=== PATIENT | female | born 1940 | race Caucasian/White ===

== ENCOUNTER 2019-01-22 11:02 | Day surgery (SDC) | payer MEDICARE ==
[~2019-01-22 11:02] MED LIST: Midazolam 1 MG/ML 2 ML SDV ONE; Propofol 200 MG/20 ML SDV ONE; Sodium Chloride 0.9% 10 ML Syringe FLUSH PRN
[2019-01-22] MEDS: Lactated Ringers 1,000 ML IV SCH (11:59)
[2019-01-22] MEDS ORDERED: Midazolam 1 MG/ML 2 ML SDV ONE (12:27)
[2019-01-22] MEDS ORDERED: Propofol 200 MG/20 ML SDV ONE (12:27)
--- NOTE | 2019-01-22 13:01 | PCM.OPNOTE ---
- General Post-Op/Procedure Note Date of Surgery/Procedure: 01/22/19 Operative Procedure(s): Incomplete Cplonoscopy Findings: Sig tics, tortuous Pre Op Diagnosis: Hx Polyps Post-Op Diagnosis: Same Anesthesia Technique: MAC Primary Surgeon: Gabriele Li Anesthesia Provider: Analy Hummel Complications: None Condition: Good
--- NOTE | 2019-01-22 13:02 | PCM.HPR ---
H & P Addendum review - H & P Addendum Review Date of Original H & P: 12/31/18 Date Reviewed: 01/22/19 Time Reviewed: 12:15 Patient was Examined: No Changes
[2019-01-22 17:05] VITALS: BP 148/99; PULSE 75
--- NOTE | 2019-01-23 10:42 | OR ---
Date of Procedure: 01/22/2019 PREOPERATIVE DIAGNOSIS: History of colon polyps. POSTOPERATIVE DIAGNOSIS: Sigmoid diverticulosis. PROCEDURE: Incomplete colonoscopy to the sigmoid colon. ANESTHESIA: IV sedation. PROCEDURE IN DETAIL: The patient was brought to the procedure room where she was placed on her left side and IV sedation administered. Digital rectal exam was performed which was normal. Colonoscope was inserted and advanced into a very tortuous sigmoid colon with multiple diverticula present. Despite changing to the supine position and providing pressure on the abdomen, I was unable to get past 30 cm. Procedure was discontinued at that time. Air was removed and the scope withdrawn. The patient tolerated the procedure well and returned to recovery in stable condition. No further colon screening should be necessary due to the patient's age. MODLucille CHAMBERLAIN MD /[id number]
== END 2019-01-22 14:05 | disposition home or self-care (01) ==
LOC: LL.SDS 11:02
PROVIDERS: ATTEND Surgery
DX: K57.30 Diverticulosis of large intestine without perforation or abscess without bleeding (principal); K63.89 Other specified diseases of intestine; R19.4 Change in bowel habit; I10 Essential (primary) hypertension; E03.9 Hypothyroidism, unspecified; Z88.1 Allergy status to other antibiotic agents; Z88.8 Allergy status to other drugs, medicaments and biological substances; Z86.010 Personal history of colon polyps; Z79.899 Other long term (current) drug therapy
CPT/HCPCS: J2250; J2704; J7120

== ENCOUNTER 2019-03-16 01:10 | Emergency (ER) | payer MEDICARE ==
[2019-03-16 02:13] LABS: CHLORIDE,CL 105 mmol/L (98-107); SODIUM,NA 143 mmol/L (136-145)
[2019-03-16] MEDS ORDERED: Aspirin 81 MG Tab.Chew ONE (02:23)
[2019-03-16] MEDS ORDERED: Heparin Sodium 5,000 Units/ML Vial IVPUSH ONE (02:54)
[2019-03-16] MEDS ORDERED: Metoprolol Tartrate 50 MG Tab PO ONE (02:55)
[2019-03-16] MEDS ORDERED: Heparin Sodium/D5W 25,000 UNITS/500 ML BAG IV SCH (03:00)
--- NOTE | 2019-03-16 03:37 | EDM.PDOC ---
ED HPI GENERAL MEDICAL PROBLEM - General Chief Complaint: Cardiovascular Problem Stated Complaint: chest achiness Time Seen by Provider: 03/16/19 01:27 Source of Information: Reports: Patient History Limitations: Reports: No Limitations - History of Present Illness INITIAL COMMENTS - FREE TEXT/NARRATIVE: Patient comes to ER with complaint of intermittent chest tightness/ache that was first noticed the day after Thanksgiving. Episodes are usually at night/ late evening and last around 30-60sec. She had one episode nightly for three nights in a row. Mild nausea with first one, but none with the other two. No diaphoresis/SOB and no radiation of pain. She had dry heaves tonight at 10pm, then went to bed. No other symptoms at the time. She woke up around midnight with another round of dry heaves and then noticed the chest tightness had returned, and this time it radiated into her left arm. Again, no diaphoresis or obvious SOB. No other recent health changes. No med changes. No history of CAD/LA. Reports hx of hypothyroidism and HTN. Prediabetes. Nonsmoker. Snores at night. Has not undergone testing to r/o sleep apnea - Related Data Allergies Allergy/AdvReac Type Severity Reaction Status Date / Time cefuroxime [From Ceftin] Allergy UNKNOWN Verified 03/16/19 03:31 Home Meds: Home Meds Levothyroxine [Synthroid] 100 mcg PO DAILY 02/16/16 [History] Losartan/Hydrochlorothiazide [Losartan-HCTZ 100-25 MG] 1 tab PO DAILY 02/16/16 [ History] amLODIPine [Norvasc] 10 mg PO DAILY 02/16/16 [History] Cholecalciferol (Vitamin D3) [Vitamin D3] 1,000 units PO DAILY 01/22/19 [History ] Lutein/Minerals/Vit A,C & E [Ocuvite] 1 tab PO DAILY 01/22/19 [History] Ubidecarenone [Co Q-10] 100 mg PO DAILY 01/22/19 [History] Past Medical History Cardiovascular History: Reports: Hypertension Respiratory History: Reports: None Gastrointestinal History: Reports: None Genitourinary History: Reports: None CREATIVE RECRUITER History: Reports: Other (See Below) Other CREATIVE RECRUITER History: 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 Musculoskeletal History: Reports: Other (See Below) Other Musculoskeletal History: Rotator cuff injury Neurological History: Reports: None Psychiatric History: Reports: Anxiety, Depression Endocrine/Metabolic History: Reports: Hypothyroidism Hematologic History: Reports: None Immunologic History: Reports: None Oncologic (Cancer) History: Reports: None Other Oncologic History: precancerous cell within ovaries Dermatologic History: Reports: Other (See Below) Other Dermatologic History: herpes zoster - Past Surgical History HEENT Surgical History: Reports: Cataract Surgery Social & Family History - Family History Family Medical History: Noncontributory - Tobacco Use Smoking Status *Q: Never Smoker - Caffeine Use Caffeine Use: Reports: Coffee, Tea - Alcohol Use Alcohol Use History: No - Recreational Drug Use Recreational Drug Use: No Drug Use in Last 12 Months: No ED ROS GENERAL - Review of Systems Review Of Systems: See Below Constitutional: Reports: No Symptoms. Denies: Diaphoresis HEENT: Reports: No Symptoms (no acute changes) Respiratory: Reports: No Symptoms. Denies: Shortness of Breath, Pleuritic Chest Pain, Cough Cardiovascular: Reports: Chest Pain. Denies: Dyspnea on Exertion, Edema, Lightheadedness, Orthopnea, Palpitations, Syncope GI/Abdominal: Reports: No Symptoms : Reports: No Symptoms Musculoskeletal: Reports: Other (tightness in chest and left arm/ache) Skin: Reports: No Symptoms Neurological: Reports: No Symptoms Psychiatric: Reports: No Symptoms ED EXAM, GENERAL - Physical Exam Exam: See Below Exam Limited By: No Limitations General Appearance: Alert, WD/WN, No Apparent Distress Eye Exam: Bilateral Eye: EOMI, PERRL Ears: Normal External Exam Nose: No: Nasal Deformity, Nasal Swelling, Nasal Drainage Throat/Mouth: Normal Lips, Normal Voice, No Airway Compromise Head: Atraumatic, Normocephalic Neck: Normal Inspection, Supple, Non-Tender, Full Range of Motion. No: Lymphadenopathy (L), Lymphadenopathy (R) Respiratory/Chest: No Respiratory Distress, Lungs Clear, Normal Breath Sounds, No Accessory Muscle Use, Chest Non-Tender Cardiovascular: Normal Peripheral Pulses, Regular Rate, Rhythm, No Edema, No Murmur Peripheral Pulses: 2+: Radial (L), Radial (R), Dorsalis Pedis (L), Dorsalis Pedis (R) GI/Abdominal: Normal Bowel Sounds, Soft, Non-Tender, No Distention (Female) Exam: Deferred Rectal (Female) Exam: Deferred Back Exam: Normal Inspection. No: CVA Tenderness (L), CVA Tenderness (R) Extremities: Non-Tender, No Pedal Edema, Normal Capillary Refill Neurological: Alert, Oriented, Normal Cognition, Normal Gait, No Motor/Sensory Deficits Psychiatric: Normal Affect, Normal Mood Skin Exam: Warm, Dry, Intact, Normal Color EKG INTERPRETATION EKG Date: 03/16/19 Time: 02:03 Rhythm: NSR Rate (Beats/Min): 80 [place]: Normal P-Wave: Present QRS: Normal ST-T: Other (inverted Ts in V2 and V3) QT: Normal Comparison: NA - No Prior EKG Course - Vital Signs Last Recorded V/S: Last Vital Signs Temp 36.4 C 03/16/19 02:20 Pulse 83 03/16/19 03:38 Resp 20 03/16/19 03:10 BP 143/57 H 03/16/19 03:38 Pulse Ox 96 03/16/19 03:38 - Orders/Labs/Meds Orders: Active Orders 24 hr Category Date Time Status EKG Documentation Completion [RC] ASDIRECTED Care 03/16/19 01:28 Ordered Chest 1V Frontal [CR] Stat Exams 03/16/19 01:28 Ordered Heparin Sodium/D5W [Heparin 25,000 Units in D5W 500 ML] Med 03/16/19 03:00 Ordered 25,000 units in 500 ml IV TITRATE Medication Orders Heparin Sodium/Dextrose (Heparin 25,000 Units In D5w 500 Ml) 25,000 units in 500 mls @ 0 mls/hr IV TITRATE TOM; Protocol Labs: Laboratory Tests 03/16/19 03/16/19 03/16/19 Range/Units 01:48 01:48 01:48 WBC 7.8 (4.0-10.2) K/uL RBC 4.65 (3.77-5.09) M/uL Hgb 13.7 (11.7-15.5) g/dL Hct 42.0 (34.0-46.0) % MCV 90.3 (84.0-98.0) fL MCH 29.5 (28.2-33.3) pg MCHC 32.6 (31.7-36.0) g/dL RDW 13.6 (11.2-14.1) % Plt Count 262 (150-350) K/uL Neut % (Auto) 54.8 (45.0-80.0) % Lymph % (Auto) 29.0 (10.0-50.0) % Nash % (Auto) 10.8 (2.0-14.0) % Eos % (Auto) 4.5 (0.0-5.0) % Baso % (Auto) 0.9 (0.0-2.0) % Neut # (Auto) 4.28 (1.40-7.00) K/uL Lymph # (Auto) 2.26 (0.50-3.50) K/uL Nash # (Auto) 0.84 (0.00-1.00) K/uL Eos # (Auto) 0.35 (0.00-0.50) K/uL Baso # (Auto) 0.07 (0.00-0.20) K/uL PT 10.5 (9.5-12.0) SEC INR 1.0 D-Dimer, Quantitative 211 (0-400) ng/mL Sodium (136-145) mmol/L Potassium (3.5-5.1) mmol/L Chloride (98-107) mmol/L Carbon Dioxide (21.0-32.0) mmol/L BUN (7-18) mg/dL Creatinine (0.51-1.17) mg/dL Est Cr Clr Drug Dosing Estimated GFR (MDRD) mL/min Glucose (74-106) mg/dL Calcium (8.5-10.1) mg/dL Magnesium (1.8-2.4) mg/dL Total Bilirubin (0.2-1.0) mg/dL AST (15-37) U/L ALT (12-78) U/L Alkaline Phosphatase (46-116) IU/L Troponin I (0.000-0.056) ng/mL NT-Pro-B Natriuret Pep (0-125) pg/mL Total Protein (6.4-8.2) g/dL Albumin (3.4-5.0) g/dL Specimen Type Urine Color Urine Appearance Urine pH (5.0-9.0) Ur Specific [place] (1.005-1.030) Urine Protein (NEGATIVE) mg/dL Urine Glucose (UA) (NEGATIVE) mg/dL Urine Ketones (NEGATIVE) mg/dL Urine Occult Blood (NEGATIVE) Urine Nitrite (NEGATIVE) Urine Bilirubin (NEGATIVE) Urine Urobilinogen (0.2-1.0) E.U./dL Ur Leukocyte Esterase (NEGATIVE) Urine RBC /HPF Urine WBC /HPF Ur Epithelial Cells /LPF Urine Bacteria (NONE TO FEW) /HPF 03/16/19 03/16/19 Range/Units 01:48 02:23 WBC (4.0-10.2) K/uL RBC (3.77-5.09) M/uL Hgb (11.7-15.5) g/dL Hct (34.0-46.0) % MCV (84.0-98.0) fL MCH (28.2-33.3) pg MCHC (31.7-36.0) g/dL RDW (11.2-14.1) % Plt Count (150-350) K/uL Neut % (Auto) (45.0-80.0) % Lymph % (Auto) (10.0-50.0) % Nash % (Auto) (2.0-14.0) % Eos % (Auto) (0.0-5.0) % Baso % (Auto) (0.0-2.0) % Neut # (Auto) (1.40-7.00) K/uL Lymph # (Auto) (0.50-3.50) K/uL Nash # (Auto) (0.00-1.00) K/uL Eos # (Auto) (0.00-0.50) K/uL Baso # (Auto) (0.00-0.20) K/uL PT (9.5-12.0) SEC INR D-Dimer, Quantitative (0-400) ng/mL Sodium 143 (136-145) mmol/L Potassium 3.7 (3.5-5.1) mmol/L Chloride 105 (98-107) mmol/L Carbon Dioxide 25.0 (21.0-32.0) mmol/L BUN 16 (7-18) mg/dL Creatinine 0.65 (0.51-1.17) mg/dL Est Cr Clr Drug Dosing TNP Estimated GFR (MDRD) > 60 mL/min Glucose 147 H (74-106) mg/dL Calcium 9.8 (8.5-10.1) mg/dL Magnesium 1.9 (1.8-2.4) mg/dL Total Bilirubin 0.3 (0.2-1.0) mg/dL AST 24 (15-37) U/L ALT 38 (12-78) U/L Alkaline Phosphatase 108 (46-116) IU/L Troponin I 0.082 H* (0.000-0.056) ng/mL NT-Pro-B Natriuret Pep 110 (0-125) pg/mL Total Protein 8.1 (6.4-8.2) g/dL Albumin 4.0 (3.4-5.0) g/dL Specimen Type Urinblad Urine Color Light yellow Urine Appearance Clear Urine pH 7.0 (5.0-9.0) Ur Specific [place] 1.015 (1.005-1.030) Urine Protein 30 H (NEGATIVE) mg/dL Urine Glucose (UA) Negative (NEGATIVE) mg/dL Urine Ketones Negative (NEGATIVE) mg/dL Urine Occult Blood Trace-intact H (NEGATIVE) Urine Nitrite Negative (NEGATIVE) Urine Bilirubin Negative (NEGATIVE) Urine Urobilinogen 0.2 (0.2-1.0) E.U./dL Ur Leukocyte Esterase Negative (NEGATIVE) Urine RBC Not seen /HPF Urine WBC 0-5 /HPF Ur Epithelial Cells Occasional /LPF Urine Bacteria Few (NONE TO FEW) /HPF Meds: Medications Generic Name Dose Route Start Last Admin Trade Name Rohit PRN Reason Stop Dose Admin Heparin Sodium/Dextrose 25,000 units in 500 mls @ 0 mls/hr 03/16/19 03:00 Heparin 25,000 Units In D5w 500 Ml IV TITRATE TOM Protocol 12 UNITS/KG/HR Discontinued Medications Generic Name Dose Route Start Last Admin Trade Name Rohit PRN Reason Stop Dose Admin Aspirin Confirm 03/16/19 02:23 Aspirin Administered 03/16/19 02:24 Dose 324 mg .ROUTE .STK-MED ONE Heparin Sodium (Porcine) 4,000 units 03/16/19 02:54 03/16/19 03:26 Heparin Sodium IVPUSH 03/16/19 02:55 4,000 units .BOLUS ONE Administration Metoprolol Tartrate 50 mg 03/16/19 02:55 03/16/19 03:21 Lopressor PO 03/16/19 02:56 50 mg ONETIME ONE Administration - Radiology Interpretation Free Text/Narrative:: Chest xray did not show acute focal changes. COPD changes present. - Re-Assessments/Exams Free Text/Narrative Re-Assessment/Exam: Cardiac labs performed. Patient's chest discomfort resolved on own shortly after arrival. Patient received 2 baby ASA as she had taken 2 at home this evening. Labs + for elevated Troponin and blood glucose. Call placed to [place] and patient accepted by /hospitalist for transfer to further assess patient for the chest pain and arrange angiography. He did request that we give Lopressor and Heparin. He did not request Brilinta. Patient remained symptom free in ER. There was delay in arranging transfer due to another (critical) patient that required care and transfer to [place]. Patient and her son requested that they drive selves to [place] given that there would be a 4-5 hour delay to obtain EMS transport due to weather and needing that unit to return to the area before patient could be able to go. Given that her vital signs were stable and that she was pain-free at this time, she was allowed to go by private vehicle in order to expedite her transport. Departure - Departure Time of Disposition: 03:37 Disposition: DC/Tfer to Acute Hospital 02 Reason for Transfer *Q: Other Condition: Good Clinical Impression: Elevated troponin Chest pain Qualifiers: Chest pain type: unspecified Qualified Code(s): R07.9 - Chest pain, unspecified Forms: ED Department Discharge Additional Instructions: Drive directly to [place] and go through the ER entrance. Tell them your name, and that you are to be admitted to room 641. is the accepting physician. If you develop any problems/worsening chest pain en route, call 911. - My Orders Last 24 Hours: My Active Orders 03/16/19 01:28 EKG Documentation Completion [RC] ASDIRECTED Chest 1V Frontal [CR] Stat 03/16/19 03:00 Heparin Sodium/D5W [Heparin 25,000 Units in D5W 500 ML] 25,000 units in 500 ml IV TITRATE - Assessment/Plan Last 24 Hours: My Active Orders 03/16/19 01:28 EKG Documentation Completion [RC] ASDIRECTED Chest 1V Frontal [CR] Stat 03/16/19 03:00 Heparin Sodium/D5W [Heparin 25,000 Units in D5W 500 ML] 25,000 units in 500 ml IV TITRATE
[2019-03-16 03:49] VITALS: BP 138/73; PULSE 71
[2019-03-16] MEDS ORDERED: Aspirin 81 MG Tab.EC PO ONE (03:50)
--- OUTSIDE RECORDS SUMMARY | 2019-03-20 08:00 | XMSREPORT ---
:1940 Author Organization Address [address] [place] [address] Care Team Providers Name Role Phone Provider, No Attributed RESOURCE Attributed Provider Unavailable Sonia Roe APRN-NURSING SPECIALIST Primary Care Provider Reason for Referral [facility] (Routine) Status Reason Specialty Diagnoses / Referred By Referred To Procedures Contact Contact New Request CARDIOLOGY Diagnoses ST elevation myocardial infarction (STEMI), unspecified artery (HCC) [facility] Gopal Stewart MD [address] [place] [address] [phone] Phone: Scheduling Instructions This is an electronic referral. Reason for Visit Auth/Cert Status Reason Specialty Diagnoses / Procedures Referred By Contact Referred To Contact Encounter Details Date Type Department Care Team Description 03/16/2019 - Hospital Encounter [facility] Provider, [facility] Procedure NSTEMI (non-ST 03/19/2019 [facility] Ajay Díaz MD [address] [place] [address] [phone] elevated myocardial [address] Terry Meadows MD [address] [place], [place] [id number] infarction) (HCC) [place] [address] Allergies Active Allergy Reactions Severity Noted Date Comments Cefuroxime Other (Specify in 03/16/2019 Reaction unknown, but Comments) verified per transfer form documented as of this encounter (statuses as of 03/19/2019) Medications Medication Sig Dispensed Refills Start Date End Date Status losartan-hydrochlo Take 1 tablet 0 Active rothiazide by mouth 1 (HYZAAR) 100-25 mg time a day in tablet the morning. levothyroxine Take 100 mcg 0 Active (SYNTHROID) 100 by mouth 1 mcg tablet time per day. omega-3 fatty Take 1,000 mg 0 Active acids (FISH OIL) by mouth 1000 mg capsule Every other day. acetaminophen Take 325 mg 0 Active (TYLENOL) 325 mg by mouth as tablet needed. vitamin D3, Take 1,000 0 Active cholecalciferol, Units by 1000 unit capsule mouth 1 time per day. multivitamin/lutei Take 1 0 Active n capsule by (PROSIGHT;OCUVITE- mouth 1 time LUTEIN) capsule per day. Multiple Take 1 tablet 0 Active Vitamins-Minerals by mouth 1 (MULTIVITAL) time per day. tablet HYDROcodone-acetam Take 2 50 tablet 1 09/14/2013 Active inophen (NORCO) tablets by 5-325 mg tablet mouth Every 4 hours as needed for mild pain. aspirin 81 mg Take 1 tablet 30 tablet 12 03/19/2019 Active chewable (81 mg) by 0 tabletIndications: mouth 1 time NSTEMI (non-ST per day elevated myocardial infarction) (HCC) clopidogrel Take 1 tablet 90 tablet 3 03/19/2019 Active (PLAVIX) 75 mg (75 mg) by 0 tabletIndications: mouth 1 time NSTEMI (non-ST per day elevated myocardial infarction) (HCC) atorvaSTATin Take 1 tablet 90 tablet 4 03/20/2019 Active (LIPITOR) 40 mg (40 mg) by 0 tabletIndications: mouth [address] elevation per day myocardial infarction (STEMI), unspecified artery (HCC) isosorbide Take 1 tablet 90 tablet 4 03/20/2019 Active mononitrate (30 mg) by 0 (IMDUR) 30 mg SR mouth 1 time tablet (24 per day hr)Indications: ST elevation myocardial infarction (STEMI), unspecified artery (HCC) metoprolol Take 1 tablet 90 tablet 4 03/20/2019 Active succinate (TOPROL (50 mg) by 0 XL) 50 mg SR mouth 1 time tablet (24 per day hr)Indications: ST elevation myocardial infarction (STEMI), unspecified artery (HCC) nitroglycerin Dissolve 1 25 tablet 0 03/19/2019 Active (NITROSTAT) 0.4 mg tablet (0.4 0 sublingual mg) under the tabletIndications: tongue Every ST elevation 5 minutes as myocardial needed for infarction chest pain (STEMI), May repeat unspecified artery every 5 (HCC) minutes for a total of 3 doses. LORazepam (ATIVAN) Take 1 tablet 20 tablet 0 03/19/2019 Active 1 mg (1 mg) by tabletIndications: mouth 4 times Anxiety a day as needed for anxiety amLODIPine Take 10 mg by 0 Discontinued (NORVASC) 10 mg mouth 1 time 9 (Stop Taking at tablet a day in the Discharge) evening. meloxicam (MOBIC) Take 1 tablet 30 tablet 0 09/14/2013 Discontinued 15 mg tablet by mouth 1 9 (Stop Taking at time a day Discharge) with breakfast. aspirin 81 mg Take 1 tablet 30 tablet 12 03/16/2019 Discontinued chewable (81 mg) by 9 (Reorder) tabletIndications: mouth 1 time NSTEMI (non-ST per day elevated myocardial infarction) (HCC) clopidogrel Take 1 tablet 90 tablet 3 03/17/2019 Discontinued (PLAVIX) 75 mg (75 mg) by 9 (Reorder) tabletIndications: mouth 1 time NSTEMI (non-ST per day elevated myocardial infarction) (HCC) documented as of this encounter (statuses as of 03/19/2019) Active Problems Problem Noted Date ST elevation NM (STEMI) 03/17/2019 Overview: STEMI post angiogram and LAD stenting on 03/17/2019- return to [facility] on 03/17/2019. 100% ostial occlusion treated with balloon angioplasty with distal occlusion not amenable to intervention. NSTEMI (non-ST elevated myocardial infarction) 03/16/2019 Osteopenia 02/19/2014 Overview: DEXA 02/2014 T score lumbar 0.6 T score hip -1.4 S/P hip replacement 09/11/2013 Impaired fasting glucose 06/09/2009 Depressive disorder 10/04/2008 Hypothyroidism 02/27/2006 REBEL positive 02/27/2006 Overview: positive lab in 2002, 2004, and 2009. other rheum labs are normal. Basal cell carcinoma, face 01/04/2003 Overview: Right cheek Hypertension goal BP (blood pressure) < 140/90 Osteoarthritis Overview: Hands, left knee Adjustment disorder documented as of this encounter (statuses as of 03/19/2019) Resolved Problems Problem Noted Date Resolved Date Other acquired absence of organ 02/27/2006 08/21/2013 Acquired absence of genital organ 02/27/2006 08/21/2013 documented as of this encounter (statuses as of 03/19/2019) Immunizations Name Administration Dates Next Due FLU VACCINE HIGH DOSE 65YR+(Fluzone) 05/07/2012 Pneumococcal Polysaccharide PPSV23 03/02/2005 Td(adult)preservative free 06/07/2008 documented as of this encounter Social History Tobacco Use Types Packs/Day Years Used Date Never Smoker Smokeless Tobacco: Never Used Alcohol Use Drinks/Week oz/Week Comments Yes 0 Standard drinks or equivalent 0.0 very rare Sex Assigned at Date Recorded Not on file Job Start Date Occupation Industry Not on file Not on file Not on file Travel History Travel Start Travel End No recent travel history available. documented as of this encounter Last Filed Vital Signs Vital Sign Reading Time Taken Comments Blood Pressure 110/93 03/19/2019 10:00 AM DIETETIC TECH Pulse 85 03/19/2019 10:00 AM DIETETIC TECH Temperature 36.4 C (97.5 F) 03/19/2019 7:28 AM DIETETIC TECH Respiratory Rate 20 03/19/2019 10:00 AM DIETETIC TECH Oxygen Saturation 93% 03/19/2019 9:00 AM DIETETIC TECH Inhaled Oxygen Concentration - - Weight 77.6 kg (171 lb 1.2 oz) 03/19/2019 5:46 AM DIETETIC TECH Height 156.2 cm (5' 1.5") 03/16/2019 5:59 AM DIETETIC TECH Body Mass Index 31.81 03/16/2019 5:59 AM DIETETIC TECH documented in this encounter Functional Status Functional Status Response Date of Assessment Is the person deaf or does he/she have serious difficulty No 03/16/2019 hearing? Is this person blind or does he/she have difficulty No 03/16/2019 seeing even when wearing glasses? Do you have difficulty with walking, balance, climbing No 03/16/2019 stairs, or had a fall in the last 3 months? Does the patient have difficulty dressing or bathing? No 03/16/2019 Because of a physical, mental, or emotional condition; No 03/16/2019 does this person have difficulty doing errands alone such as visiting a doctor's office or shopping? Cognitive Status Response Date of Assessment Because of a physical, mental, or emotional condition; No 03/16/2019 does this person have serious difficulty concentrating, remembering, or making decisions? documented as of this encounter Discharge Summaries Not on filedocumented in this encounter Medications at Time of Discharge Medication Sig Dispensed Refills Start Date End Date aspirin 81 mg chewable Take 1 tablet (81 30 tablet 12 03/19/20192019 tabletIndications: NSTEMI mg) by mouth 1 time (non-ST elevated per day myocardial infarction) (HCC) clopidogrel (PLAVIX) 75 Take 1 tablet (75 90 tablet 3 03/19/20192019 mg tabletIndications: mg) by mouth 1 time NSTEMI (non-ST elevated per day myocardial infarction) (HCC) atorvaSTATin (LIPITOR) 40 Take 1 tablet (40 90 tablet 4 03/20/20192019 mg tabletIndications: ST mg) by mouth 1 time elevation myocardial per day infarction (STEMI), unspecified artery (HCC) isosorbide mononitrate Take 1 tablet (30 90 tablet 4 03/20/2019 03/24/2020 (IMDUR) 30 mg SR tablet mg) by mouth 1 time (24 hr)Indications: ST per day elevation myocardial infarction (STEMI), unspecified artery (HCC) metoprolol succinate Take 1 tablet (50 90 tablet 4 03/20/2019 03/24/2020 (TOPROL XL) 50 mg SR mg) by mouth 1 time tablet (24 per day hr)Indications: ST elevation myocardial infarction (STEMI), unspecified artery (HCC) nitroglycerin (NITROSTAT) Dissolve 1 tablet 25 tablet 0 03/19/20192019 0.4 mg sublingual (0.4 mg) under the tabletIndications: ST tongue Every 5 elevation myocardial minutes as needed infarction (STEMI), for chest pain May unspecified artery (HCC) repeat every 5 minutes for a total of 3 doses. HYDROcodone-acetaminophen Take 2 tablets by 50 tablet 1 09/14/2013 (NORCO) 5-325 mg tablet mouth Every 4 hours as needed for mild pain. multivitamin/lutein Take 1 capsule by 0 (PROSIGHT;OCUVITE-LUTEIN) mouth 1 time per capsule day. Multiple Take 1 tablet by 0 Vitamins-Minerals mouth 1 time per (MULTIVITAL) tablet day. omega-3 fatty acids (FISH Take 1,000 mg by 0 OIL) 1000 mg capsule mouth Every other day. acetaminophen (TYLENOL) Take 325 mg by mouth 0 325 mg tablet as needed. LORazepam (ATIVAN) 1 mg Take 1 tablet (1 mg) 20 tablet 0 03/19/2019 tabletIndications: by mouth 4 times a Anxiety day as needed for anxiety losartan-hydrochlorothiaz Take 1 tablet by 0 donavan (HYZAAR) 100-25 mg mouth 1 time a day tablet in the morning. levothyroxine (SYNTHROID) Take 100 mcg by 0 100 mcg tablet mouth 1 time per day. vitamin D3, Take 1,000 Units by 0 cholecalciferol, 1000 mouth 1 time per unit capsule day. documented as of this encounter Progress Notes Terry Meadows MD - 03/18/2019 11:46 AM CST DAILY PROGRESS NOTE Vidhi Hammer is a 79yr old female admitted on 03/16/2019. ASSESSMENT & PLAN This is an 79-year-old female who came with acute chest pain, was diagnosed with NSTEMI and underwent a coronary angiogram and was found to have 95% mid LAD which was treated with a drug-eluting stent. Unfortunately, the patient experienced another episode of chest pain an hour after the procedure and was diagnosed with a ST elevation myocardial infarction and was emergently taken to the open hearth laborer for repeat angiogram and was found to have 100% occluded distal diagonal artery. The patient was givenintracoronary nitroglycerin with marginal improvement. Distal vessel was too small for ballooning,LAD stent patent. Currently being managed for the following conditions: 1. NSTEMI, type 1 with subsequent STEMI -still experienced chest pain 3-07/16. - continue aspirin and Plavix in standard doses due to continued chest pain and evidence of occludeddistal diagonal artery. -imdur for chest pain 30 mg pain medication available for severe pain as well. Patient will be on telemetry and continued monitoring until chest pain completely resolved. -repeat ekg -increase metoprolol to 25 BID or 50 SR -start lisinopril 2. Hypertension. Continue lisinopril and metoprolol. 3. Hypothyroidism. Continue levothyroxine. 4. DVT prophylaxis. Systemic anticoagulation with heparin. SUBJECTIVE CP present at 06/15 Review of Systems General ROS: negative Constitutional ROS: negative Respiratory ROS: no cough, shortness of breath, or wheezing Cardiovascular ROS: +chest pain or dyspnea on exertion Gastrointestinal ROS: no abdominal pain, change in bowel habits, or black or bloody stools Neurological ROS: no TIA or stroke symptoms Dermatological ROS: negative OBJECTIVE Current Vital Signs Temp: 99.7 F (37.6 C) BP: 119/70 Pulse: 78 O2 Device: Room Air Resp: 15 Pain Ratin (out of 10) Weight: 78.4 kg (172 lb 13.5 oz) SpO2: 90 % Intake and Output Last 24 Hours 03/17 0700 - 03/18 0659 In: 1842 Out: 1 Lines and Drains Patient Lines/Drains/Airways Status Active Lines Name: Placement date: Placement time: Site: Days: Peripheral IV 03/16/19 Wrist Left;Posterior 03/16/190 Wrist 1 Physical Exam General Appearance: alert, well appearing, and in no distress Mental Status: alert, oriented to person, place, and time Chest: clear to auscultation, no wheezes, rales or rhonchi, symmetric air entry Heart: normal rate, regular rhythm, normal S1, S2, no murmurs, rubs, clicks or gallops Abdomen: soft, nontender, nondistended, no masses or organomegaly Neurological: alert, oriented, normal speech, no focal findings or movement disorder noted Extremities: peripheral pulses normal, no pedal edema, no clubbing or cyanosis Skin: normal coloration and turgor, no rashes, no suspicious skin lesions noted Diagnostics and Labs Reviewed Lilian Ricci DO - 03/18/2019 9:49 AM CST CARDIOLOGY CONSULT PROGRESS NOTE Patient Name: Vidhi Hammer Admit Date: 03/16/2019 CSN: [id number] Assessment and Plan # NSTEMI Type 1 s/p PCI and BERNARDINO x2 to LAD 03/16/19 # post cath STEMI Involving distal diagonal branch with 100% occlusion # Mildly redcued LVEF of 40% # HTN # HLD # Diabetes Mellitus type II Plan: - Increase lisinopril to 10 mg daily - d/c Lopressor bid and start Toprol XL 50 daily starting tomorrow - Add Imdur 30 daily - Follow up with Cardiology in 2-3 months OP Code Status: Full Code Appreciate the opportunity to be involved in this patient's care. Thank you for the consult, we willsign off at this time Pt was seen and discussed with Dr. Tracy Benson DO Pager #[phone] PGY-3 [facility], [place] 03/18/2019 Interval History Doing well, pain has improved. Up and walking and tolerating diet Review of Systems Cardiac, Resp, GI, and General are negative. All pertinent positives present in interval Hx. Current Vital Signs Temp: 99.7 F (37.6 C) BP: 119/70 Pulse: 78 O2 Device: Room Air Resp: 15 Pain Ratin (out of 10) Weight: 78.4 kg (172 lb 13.5 oz) SpO2: 90 % Physical Exam Physical Exam Constitutional: She is oriented to person, place, and time. She appears well- developed and well-nourished. No distress. HENT: Head: Normocephalic and atraumatic. Eyes: Conjunctivae are normal. No scleral icterus. Neck: No JVD present. Cardiovascular: Normal rate, regular rhythm, normal heart sounds and intact distal pulses. Pulmonary/Chest: Effort normal and breath sounds normal. Abdominal: Soft. Bowel sounds are normal. She exhibits no distension. There is no tenderness. Musculoskeletal: She exhibits no edema or tenderness. Lymphadenopathy: She has no cervical adenopathy. Neurological: She is alert and oriented to person, place, and time. Skin: Skin is warm and dry. She is not diaphoretic. Psychiatric: She has a normal mood and affect. Her behavior is normal. Judgment and thought content normal. Nursing note and vitals reviewed. Labs I have reviewed all labs, and pertinent positives and negatives are discussed in the Assessment and Plan. ETIC TECH Associated attestation - Andi Calderon MD - 03/18/2019 2:49 PM DIETETIC TECH I discussed the patient with the resident and personally interviewed and examined the patient. I verified in the medical record all resident documentation/findings, including history, physical exam, and medical decision making, and I agree with the resident's documentation.Terry Meadows MD - 1:57 PM CST DAILY PROGRESS NOTE Vidhi Hammer is a 79yr old female admitted on 03/16/2019. ASSESSMENT & PLAN This is an 79-year-old female who came with acute chest pain, was diagnosed with NSTEMI and underwent a coronary angiogram and was found to have 95% mid LAD which was treated with a drug-eluting stent. Unfortunately, the patient experienced another episode of chest pain an hour after the procedure and was diagnosed with a ST elevation myocardial infarction and was emergently taken to the open hearth laborer for repeat angiogram and was found to have 100% occluded distal diagonal artery. The patient was givenintracoronary nitroglycerin with marginal improvement. Distal vessel was too small for ballooning,LAD stent patent. Currently being managed for the following conditions: 1. NSTEMI. The patient still experienced chest pain 07/16. Therefore, approach has been changed a little. The patient will continue aspirin and Plavix in standard doses due to continued chest pain and evidence of occluded distal diagonal artery. Patient will continue with a heparin drip as well asshe has nitroglycerin 2% ointment for chest pain, pain medication available for severe pain as well. Patient will be on telemetry and continued monitoring for 1 to 2 days until chest pain completely resolved. 2. Hypertension. Continue lisinopril and metoprolol. 3. Hypothyroidism. Continue levothyroxine. 4. DVT prophylaxis. Systemic anticoagulation with heparin. Receipt: [id number] Trans ID: [id number] DIETETIC TECH DIETETIC TECH SUBJECTIVE CP present at 08/15 Review of Systems General ROS: negative Constitutional ROS: negative Respiratory ROS: no cough, shortness of breath, or wheezing Cardiovascular ROS: +chest pain or dyspnea on exertion Gastrointestinal ROS: no abdominal pain, change in bowel habits, or black or bloody stools Neurological ROS: no TIA or stroke symptoms Dermatological ROS: negative OBJECTIVE Current Vital Signs Temp: 98.2 F (36.8 C) BP: 123/101 Pulse: 67 O2 Device: Room Air Resp: 12 Pain Ratin (out of 10) Weight: 78.4 kg (172 lb 13.5 oz) SpO2: 92 % Intake and Output Last 24 Hours 03/16 0700 - 03/17 0659 In: 1121 Out: 100 Lines and Drains Patient Lines/Drains/Airways Status Active Lines Name: Placement date: Placement time: Site: Days: Peripheral IV 03/16/19 Radial Left 03/16/19 0950 Radial 1 Peripheral IV 03/16/19 Wrist Left;Posterior 03/16/19 2130 Wrist less than 1 Physical Exam General Appearance: alert, well appearing, and in no distress Mental Status: alert, oriented to person, place, and time Chest: clear to auscultation, no wheezes, rales or rhonchi, symmetric air entry Heart: normal rate, regular rhythm, normal S1, S2, no murmurs, rubs, clicks or gallops Abdomen: soft, nontender, nondistended, no masses or organomegaly Neurological: alert, oriented, normal speech, no focal findings or movement disorder noted Extremities: peripheral pulses normal, no pedal edema, no clubbing or cyanosis Skin: normal coloration and turgor, no rashes, no suspicious skin lesions noted Diagnostics and Labs Reviewed Lilian Ricci DO - 03/17/2019 8:47 AM CST CARDIOLOGY CONSULT PROGRESS NOTE Patient Name: Vidhi Hammer Admit Date: 03/16/2019 CSN: [id number] Assessment and Plan # NSTEMI Type 1 s/p PCI and BERNARDINO x2 to LAD 03/16/19 # post cath STEMI Involving distal diagonal branch with 100% occlusion # Mildly redcued LVEF of 40% # HTN # HLD # Diabetes Mellitus type II Plan: - Initial angiogram showed 95% blockage of the mid LAD with two stents placed. Second angiogram did show 100% Occlusion of the distal diagonal not amendable to stenting. - Has had continued pain this morning, repeat EKG was improved. Continue heparin gtt, added nitropaste and vistaril prn-possible anxiety component. - Stop norvasc and start lisinopril 5 mg, plan to titrate to 10 mg daily. Continue lopressor at 12.5 mg bid. - Continue statin -labs in AM Code Status: Full Code Appreciate the opportunity to be involved in this patient's care. Thank you for the consult, we willcontinue to follow. Pt was seen and discussed with Dr. Tracy Benson, Pager #[phone] PGY-2 [facility], [place] 03/17/2019 Interval History Patient was doing well intially after procedure but developed sudden onset of CP. EKG showed new STelevations in V1-V3. STEMI code called, repeat angio showed patent stents in LAD, new 100% distal occlusion of diagonal. Pain still occurring this AM. Left sided with radiation into arm. No SOB, no n /v, dizziness, SARKAR. Review of Systems Cardiac, Resp, GI, and General are negative. All pertinent positives present in interval Hx. Current Vital Signs Temp: 97.6 F (36.4 C) BP: 124/73 Pulse: 75 O2 Device: Room Air Resp: 15 Pain Ratin (out of 10) Weight: 78.4 kg (172 lb 13.5 oz) SpO2: 94 % Physical Exam Physical Exam Constitutional: She is oriented to person, place, and time. She appears well- developed and well-nourished. She appears distressed (mild distress d/t pain ). HENT: Head: Normocephalic and atraumatic. Eyes: Conjunctivae are normal. No scleral icterus. Neck: No JVD present. Cardiovascular: Normal rate, regular rhythm, normal heart sounds and intact distal pulses. Pulmonary/Chest: Effort normal and breath sounds normal. Abdominal: Soft. Bowel sounds are normal. There is no tenderness. Musculoskeletal: She exhibits no edema or tenderness. Lymphadenopathy: She has no cervical adenopathy. Neurological: She is alert and oriented to person, place, and time. Skin: Skin is warm and dry. She is not diaphoretic. Psychiatric: She has a normal mood and affect. Her behavior is normal. Judgment and thought content normal. Labs I have reviewed all labs, and pertinent positives and negatives are discussed in the Assessment and Plan. ETIC TECH Associated attestation - Andi Calderon MD - 03/17/2019 3:10 PM DIETETIC TECH I discussed the patient with the resident and personally interviewed and examined the patient. I verified in the medical record all resident documentation/findings, including history, physical exam, and medical decision making, and I agree with the resident's documentation.Rebecca Amador MD - 9:27 PM CSTMedicine resident called me to inform that patient was having chest pain which was new onset. She had a PCI done to LAD earlier today. Nitroglycerin was given which did not help much. EKG was reviewed by me which showed that there was significant new onset ST elevation in lead I and aVL along with reciprocal changes in leads II, III and aVF (ST depression and T wave inversion) which is new. Therewere T wave inversion in leads V1 to V3 which is unchanged from before. The pain was getting worse. Therefore STEMI call was activated. documented in this encounter Plan of Treatment Date Type Specialty Care Team Description 03/24/2019 Office Visit Family Practice Sonia Roe, DEVANG [address] [place] [id number] Name Type Priority Associated Diagnoses Date/Time EKG CVS Routine 03/18/2019 9:28 AM DIETETIC TECH Name Type Priority Associated Diagnoses Order Schedule COMPLETE BLOOD COUNT Lab Routine Early AM draw for labs WITH DIFFERENTIAL until discontinued starting 03/18/2019, 2 completed RENAL FUNCTION PANEL Lab Routine Early AM draw for labs until discontinued starting 03/18/2019, 2 completed ECHO ADULT LIMITED CVS Routine ST elevation myocardial Expected: 04/02/2019 infarction (STEMI), (Approximate), Expires: unspecified artery 04/18/2020 (HCC) Name Type Priority Associated Diagnoses Order Schedule CLINIC REFERRAL Referral Routine ST elevation myocardial Ordered: 2018 CARDIOLOGY ONE CHART infarction (STEMI), unspecified artery (HCC) documented as of this encounter Goals Goal Patient Goal Associated Recent Patient-Stated? Author Type Problems Progress Blood Pressure Blood Pressure 110/93 No Jenifer, < 140/90 DEVANG Saul documented as of this encounter Implants Implanted Type Area Steam Fitter Supervisor Maintenance Device Shelf Model / Identifier Expiration Serial / Date Lot Hip Acet Shell Pncle [id number] N Ea - Sn/A Total Jt Right: [employer] 04/07/2023 / Implanted: Qty: 1 on 09/11/2013 by Francisco Delgadillo MD at [facility] Hip HIP N/A / [id number] Description:surgical team agreed upon implant Hip Hl Eliminator Depu N Ea - Sn/A Total Jt Hip Right: HIP [employer] 05/08/2023 / Implanted: Qty: 1 on 09/11/2013 by Francisco Delgadillo MD at [facility] N/A / [id number] Description:surgical team agreed upon implant Hip Acetlnr Altrx [id number] N Ea - Sn/A Total Jt Hip Right: HIP [employer] 08/05/2018 / Implanted: Qty: 1 on 09/11/2013 by Francisco Delgadillo MD at [facility] N/A / [id number] Description:surgical team agreed upon implant Hip Fem Stem Corail Depu Sz11 N [id number] Ea - Sn/A Total Jt Hip Right: HIP [employer] 06/05/2018 [id number] / Implanted: Qty: 1 on 09/11/2013 by Francisco Delgadillo MD at [facility] N/A / [id number] Description:Primary localized osteoarthrosis, pelvic region and thigh Hip Fem Head Taz +1.5 28mm N 136 Ea - Sn/A Total Jt Hip Right: HIP [employer] 05/08/2018 [id number] / Implanted: Qty: 1 on 09/11/2013 by Francisco Delgadillo MD at [facility] N/A / [id number] Description:Primary localized osteoarthrosis, pelvic region and thigh [715.15] documented as of this encounter Procedures Procedure Name Priority Date/Time Associated Comments Diagnosis LAB ONLY-COMPLETE Routine 03/19/2019 5:59 Results for this BLOOD COUNT WITH AM DIETETIC TECH procedure are in DIFFERENTIAL the results section. RENAL FUNCTION PANEL Routine 03/19/2019 5:59 Results for this AM DIETETIC TECH procedure are in the results section. LAB ONLY-COMPLETE Routine 03/19/2019 5:59 Results for this BLOOD COUNT WITH AM DIETETIC TECH procedure are in DIFFERENTIAL the results section. PTT Routine 03/18/2019 9:33 Results for this PM DIETETIC TECH procedure are in the results section. PTT Timed Routine 03/18/2019 11:20 Results for this AM DIETETIC TECH procedure are in the results section. LAB ONLY-COMPLETE Routine 03/18/2019 4:17 Results for this BLOOD COUNT WITH AM DIETETIC TECH procedure are in DIFFERENTIAL the results section. PTT STAT 03/18/2019 4:17 Results for this AM DIETETIC TECH procedure are in the results section. RENAL FUNCTION PANEL Routine 03/18/2019 4:17 Results for this AM DIETETIC TECH procedure are in the results section. LAB ONLY-COMPLETE Routine 03/18/2019 4:17 Results for this BLOOD COUNT WITH AM DIETETIC TECH procedure are in DIFFERENTIAL the results section. PTT Timed Routine 03/18/2019 2:50 Results for this AM DIETETIC TECH procedure are in the results section. PTT Timed Routine 03/18/2019 1:41 Results for this AM DIETETIC TECH procedure are in the results section. PTT Timed Routine 03/17/2019 7:04 Results for this PM DIETETIC TECH procedure are in the results section. PTT CLAUS 03/17/2019 11:44 Results for this AM DIETETIC TECH procedure are in the results section. ECHO ADULT LIMITED CLAUS 03/17/2019 8:39 Results for this AM DIETETIC TECH procedure are in the results section. PHOSPHORUS Routine 03/17/2019 7:52 Results for this AM DIETETIC TECH procedure are in the results section. MAGNESIUM Routine 03/17/2019 7:52 Results for this AM DIETETIC TECH procedure are in the results section. BASIC METABOLIC PANEL Routine 03/17/2019 7:52 Results for this AM DIETETIC TECH procedure are in the results section. EKG Routine 03/17/2019 5:59 Results for this AM DIETETIC TECH procedure are in the results section. PTT CLAUS 03/16/2019 9:38 Results for this PM DIETETIC TECH procedure are in the results section. TROPONIN I STAT 03/16/2019 9:33 Results for this PM DIETETIC TECH procedure are in the results section. EKG STAT 03/16/2019 9:16 Results for this PM DIETETIC TECH procedure are in the results section. EKG STAT 03/16/2019 8:57 Results for this PM DIETETIC TECH procedure are in the results section. EKG STAT 03/16/2019 8:12 Results for this PM DIETETIC TECH procedure are in the results section. EKG STAT 03/16/2019 6:48 Results for this PM DIETETIC TECH procedure are in the results section. ACTIVATED CLOTTING Routine 03/16/2019 5:45 Results for this TIME POCT PM DIETETIC TECH procedure are in the results section. CARDIAC CATH POSSIBLE Routine 03/16/2019 5:44 Results for this ANGIOPLASTY STENT PM DIETETIC TECH procedure are in CLIENT EXPERIENCE CONSULTANT the results section. PTT Timed Routine 03/16/2019 2:00 Results for this PM DIETETIC TECH procedure are in the results section. TSH Routine 03/16/2019 2:00 Results for this PM DIETETIC TECH procedure are in the results section. ECHO ADULT COMPLETE Routine 03/16/2019 11:52 Results for this AM DIETETIC TECH procedure are in the results section. TROPONIN I Timed Routine 03/16/2019 10:36 Results for this AM DIETETIC TECH procedure are in the results section. EKG Routine 03/16/2019 9:20 Results for this AM DIETETIC TECH procedure are in the results section. LAB ONLY-COMPLETE STAT 03/16/2019 7:19 Results for this BLOOD COUNT WITH AM DIETETIC TECH procedure are in DIFFERENTIAL the results section. LIPID PANEL Routine 03/16/2019 7:19 Results for this AM DIETETIC TECH procedure are in the results section. PTT CLAUS 03/16/2019 7:19 Results for this AM DIETETIC TECH procedure are in the results section. GLYCATED HEMOGLOBIN Routine 03/16/2019 7:19 Results for this AM DIETETIC TECH procedure are in the results section. TROPONIN I Timed Routine 03/16/2019 7:19 Results for this AM DIETETIC TECH procedure are in the results section. LACTIC ACID Routine 03/16/2019 7:19 Results for this AM DIETETIC TECH procedure are in the results section. COMPREHENSIVE STAT 03/16/2019 7:19 Results for this METABOLIC PANEL AM DIETETIC TECH procedure are in the results section. LAB ONLY-COMPLETE STAT 03/16/2019 7:19 Results for this BLOOD COUNT WITH AM DIETETIC TECH procedure are in DIFFERENTIAL the results section. documented in this encounter Results LAB ONLY-COMPLETE BLOOD COUNT WITH DIFFERENTIAL (03/19/2019 5:59 AM DIETETIC TECH) WBC 11.0 4.0 - 11.0 K/uL [address] RBC 4.32 3.80 - 5.[address] M/uL Hemoglobin 12.7 11.5 - 15.[address] g/dL Hematocrit 38.5 35.0 - 45.0 % [address] MCV 89.1 80.0 - 98.[address] MCH 29.4 25.5 - 34.[address] MCHC 33.0 31.5 - 36.[address] g/dL RDW-CV 13.2 11.5 - 15.5 % [address] RDW-SD 42.9 35.5 - 50.[address] Platelet Count 252 140 - 400 K/uL [address] MPV 9.9 8.5 - 12.[address] Seg Neut Absolute 7.2 1.8 - 8.0 K/uL [address] Lymphocytes Absolute 2.1 0.8 - 4.1 K/uL [address] Monocytes Absolute 1.3 (H) 0.0 - 1.0 K/uL [address] Eosinophils Absolute 0.3 0.0 - 0.7 K/uL [address] Basophil Absolute 0.1 0.0 - 0.2 K/uL [address] Immature Granulocyte 0.05 0.00 - 0.[address] Absolute K/uL Neutrophils Abs. (Segs 7,200 /uL [place] [address] [facility] and Bands) Neutrophils Percent 65.3 % [address] Lymphocytes Percent 18.7 % [address] Monocytes Percent 11.9 % [address] Immature Granulocyte 0.5 % [address] Percent Eosinophils Percent 3.0 % [address] Basophil Percent 0.6 % [place] [address] [facility] Nucleated RBC 0 /[address] Specimen Blood Performing Organization Address City/State/Zipcode Phone Number [address] [facility] [place] [address] RENAL FUNCTION PANEL (03/19/2019 5:59 AM DIETETIC TECH) Glucose 132 (H) 70 - 100 mg/dL [address] BUN 12 6 - 22 mg/dL [address] Creatinine 0.73 0.60 - 1.[address] mg/dL BUN/Creatinine Ratio 16.4 10.0 - 25.[address] Sodium 136 135 - 145 meq/L [address] Potassium 4.0 3.5 - 5.3 meq/L [address] Chloride 102 99 - 110 meq/L [address] CO2 26 20 - 29 meq/L [address] Anion Gap with K 12 6 - 20 meq/L [address] Calcium 9.4 8.5 - 10.5 mg/dL [address] Phosphorus 3.2 2.5 - 4.5 mg/dL [address] Albumin 3.7 3.5 - 5.0 g/dL [address] Corrected Calcium 9.6 8.5 - 10.5 mg/dL [address] Age [address] eGFR Non- 77 >=[address] [place] mL/min/1.73m2 eGFR >90 >=[address] mL/min/1.73m2 Specimen Blood Performing Organization Address [facility] Phone Number [address] [place] [address] PTT (03/18/2019 9:33 PM DIETETIC TECH) APTT 36 (H) 24 - [address] Specimen Blood Performing Organization Address [facility] Phone Number [address] [place] [address] PTT (03/18/2019 11:20 AM DIETETIC TECH) APTT 65 (H) 24 - [address] Specimen Blood Performing Organization Address [facility] Phone Number [address] [place] [address] LAB ONLY-COMPLETE BLOOD COUNT WITH DIFFERENTIAL (03/18/2019 4:17 AM DIETETIC TECH) WBC 9.0 4.0 - 11.0 K/uL [address] RBC 4.25 3.80 - 5.30 M/uL [address] Hemoglobin 12.6 11.5 - 15.8 g/dL [address] Hematocrit 39.1 35.0 - 45.0 % [address] MCV 92.0 80.0 - 98.[address] MCH 29.6 25.5 - 34.[address] MCHC 32.2 31.5 - 36.5 g/dL [address] RDW-CV 13.4 11.5 - 15.5 % [address] RDW-SD 45.2 35.5 - 50.[address] Platelet Count 242 140 - 400 K/uL [address] MPV 9.7 8.5 - 12.[address] Seg Neut Absolute 5.6 1.8 - 8.0 K/uL [address] Lymphocytes Absolute 2.0 0.8 - 4.1 K/uL [address] Monocytes Absolute 1.0 0.0 - 1.0 K/uL [address] Eosinophils Absolute 0.2 0.0 - 0.7 K/uL [address] Basophil Absolute 0.1 0.0 - 0.2 K/uL [address] Immature Granulocyte 0.03 0.00 - 0.06 K/uL [address] Absolute Neutrophils Abs. (Segs 5,600 /uL [place] [address] [facility] and Bands) Neutrophils Percent 62.8 % [address] Lymphocytes Percent 22.5 % [address] Monocytes Percent 11.5 % [address] Immature Granulocyte 0.3 % [address] Percent Eosinophils Percent 2.3 % [address] Basophil Percent 0.6 % [place] [address] [facility] Nucleated RBC 0 /[address] Specimen Blood Performing Organization Address [facility]/Zipcode Phone Number [address] [place] [address] PTT (03/18/2019 4:17 AM DIETETIC TECH) APTT 101 (H) 24 - [address] Specimen Blood Performing Organization Address [facility] Phone Number [address] [place] [address] RENAL FUNCTION PANEL (03/18/2019 4:17 AM DIETETIC TECH) Glucose 125 (H) 70 - 100 mg/dL [address] BUN 10 6 - 22 mg/dL [address] Creatinine 0.67 0.60 - 1.[address] mg/dL BUN/Creatinine Ratio 14.9 10.0 - 25.[address] Sodium 139 135 - 145 meq/L [address] Potassium 3.8 3.5 - 5.3 meq/L [address] Chloride 105 99 - 110 meq/L [address] CO2 21 20 - 29 meq/L [address] Anion Gap with K 17 6 - 20 meq/L [address] Calcium 9.9 8.5 - 10.5 mg/dL [address] Phosphorus 4.0 2.5 - 4.5 mg/dL [address] Albumin 4.0 3.5 - 5.0 g/dL [address] Age [address] eGFR Non- 85 >=[address] [place] mL/min/1.73m2 eGFR >90 >=[address] mL/min/1.73m2 Specimen Blood Performing Organization Address [facility] Phone Number [address] [place] [address] PTT (03/18/2019 2:50 AM DIETETIC TECH) APTT >150 (HH) 24 - 35 secs [place] [address] [facility] Specimen Blood Performing Organization Address [facility] Phone Number [place] [address] [facility] [address] [place] [address] PTT (03/18/2019 1:41 AM DIETETIC TECH) APTT >150 (HH) 24 - 35 secs [place] [address] [facility] Specimen Blood Performing Organization Address [facility] Phone Number [place] [address] [facility] [address] [place] [address] PTT (03/17/2019 7:04 PM DIETETIC TECH) APTT 58 (H) 24 - [address] Specimen Blood Performing Organization Address [facility]/Zipcode Phone Number [address] [place] [address] PTT (03/17/2019 11:44 AM DIETETIC TECH) APTT 33 24 - [address] Specimen Blood Performing Organization Address [facility] Phone Number [address] [place] [address] ECHO ADULT LIMITED (03/17/2019 8:39 AM DIETETIC TECH) Specimen Narrative Performed At [facility] Patient: VIDHI HAMMER MR#: [id number] Exam Date: 03/17/2019 Transthoracic Echocardiogram [facility] [address] [facility], [id number] : 124/73 mmHg HR:70 bpm : 1940Exam Location: Bedside Height:62.00 "( 157.5 cm) Age: 79 year(s)[facility] 76.66 kg[facility] Gender:FemalePatient Status: Inpatient BSA: 1.78 m2 Sample Mounter: CHELSEA BEARDEN RDCS (,) Reading Physician: REBECCA AMADOR MD Ordering Physician:AJAY BEDOYA MD Procedure Indication(s):STEMI Examination:TTE Limited 2D, Limited Spectral Doppler, Color Doppler Exam Comments f/u to previous echo the day prior Conclusions Left Ventricle: Aogd-ac-zdnhxsdmdx reducedleft ventricular systolic function. The ejection fraction is visually estimated to be 40 %. The mid anteroseptal, apical septal and apical inferior wall segments are hypokinetic. The apical anterior, apical lateral and apex wall segments are akinetic. Right Ventricle: Normal right ventricular systolic function by visual assessment. Pulmonary Artery: No significant pulmonary artery hypertension. Tricuspid Valve: Davx-lw-iwtivqoy tricuspid regurgitation. Comparison Study Comparison Date: 03/16/2019 Comparison Study: Transthoracic Echocardiogram There was no significant change from prior echo Findings Left Ventricle: Normal left ventricular size. Normal left ventricular wall thickness. Mild-to- moderately reducedleft ventricular systolic function. The ejection fraction is visually estimated to be 40 %. The mid anteroseptal, apical septal and apical inferior wall segments are hypokinetic. The apical anterior, apical lateral and apex wall segments are akinetic. Left Atrium: Normal left atrial size by visual assessment. Aortic Valve: Tricuspid aortic valve with normal function. No significant aortic regurgitation. No aortic stenosis. Mitral Valve: Mild mitral leaflet thickening. Mild calcification of the posterior mitral leaflet. Mild mitral regurgitation. No mitral stenosis. IAS: No gross evidence of shunt flow seen; however the possibility of a PFO cannot be completely ruled out. Right Ventricle: Normal right ventricular size. Normal right ventricular systolic function by visual assessment. Normal right ventricular wall thickness. Pulmonary artery systolic pressure is measured at 34 mmHg. Pulmonary Artery: No significant pulmonary artery hypertension. Right Atrium: Normal right atrial size. Tricuspid Valve: Normal tricuspid valve structure. Qykp-em-ppmbzurc tricuspid regurgitation. Pulmonic Valve: Normal pulmonary valve structure. No significant pulmonary regurgitation. No pulmonary stenosis. IVC: Normal IVC size with normal respirophasic changes. Pericardium: No significant pericardial effusion. No pleural effusion. Measurements Heart Rate Aortic Valve Label ValueNormal Value Label Value Normal Value Heart Rate 70 bpm AV Xdpc269 cm/s AV Vmean 100 cm/s AV VTI 30.9 cm AV PGmax 8 mmHg AV PGmean4 mmHg AV Vmax, Caliper 141 cm/s Tricuspid Valve Label ValueNormal Value TR Tyly325 cm/s TR Pmax31 mmHg RA Pressure3 mmHg RVSP 34 mmHg (No Signature Object) Wall Motion Scores -1 - Not Scored, 0 - Unknown, 1 - Normal or hyperkinesia,2 - Hypokinesia, 3 - Akinesia, 4 - Dyskinesia, 5 - Aneurysm Procedure Note Interface, Inc Results No Pull Forward - 03/17/2019 10:22 AM DIETETIC TECH Patient: VIDHI HAMMER MR#: [id number] Exam Date: 03/17/2019 Transthoracic Echocardiogram [facility] [address] [place] [id number] BP: 124/73 mmHg HR: 70 bpm : 1940 Exam Location: Bedside Height: 62.00 "(157.5 cm) Age: 79 year(s) Patient Room: 519 01 Weight: 169 lbs.(76.66 kg) Gender: Female Patient Status: Inpatient BSA: 1.78 m2 Sample Mounter: CHELSEA BEARDEN RDCS (,FE) Reading Physician: REBECCA AMADOR MD Ordering Physician: AJAY BEDOYA MD Procedure Indication(s): STEMI Examination: TTE Limited 2D, Limited Spectral Doppler, Color Doppler Exam Comments f/u to previous echo the day prior Conclusions Left Ventricle: Lyje-nj-ekdziiddps reduced left ventricular systolic function. The ejection fraction is visually estimated to be 40 %. The mid anteroseptal, apical septal and apical inferior wall segments are hypokinetic. The apical anterior, apical lateral and apex wall segments are akinetic. Right Ventricle: Normal right ventricular systolic function by visual assessment. Pulmonary Artery: No significant pulmonary artery hypertension. Tricuspid Valve: Lrxk-cy-aaowvkvu tricuspid regurgitation. Comparison Study Comparison Date: 03/16/2019 Comparison Study: Transthoracic Echocardiogram There was no significant change from prior echo Findings Left Ventricle: Normal left ventricular size. Normal left ventricular wall thickness. Mild-to- moderately reduced left ventricular systolic function. The ejection fraction is visually estimated to be 40 %. The mid anteroseptal, apical septal and apical inferior wall segments are hypokinetic. The apical anterior, apical lateral and apex wall segments are akinetic. Left Atrium: Normal left atrial size by visual assessment. Aortic Valve: Tricuspid aortic valve with normal function. No significant aortic regurgitation. No aortic stenosis. Mitral Valve: Mild mitral leaflet thickening. Mild calcification of the posterior mitral leaflet. Mild mitral regurgitation. No mitral stenosis. IAS: No gross evidence of shunt flow seen; however the possibility of a PFO cannot be completely ruled out. Right Ventricle: Normal right ventricular size. Normal right ventricular systolic function by visual assessment. Normal right ventricular wall thickness. Pulmonary artery systolic pressure is measured at 34 mmHg. Pulmonary Artery: No significant pulmonary artery hypertension. Right Atrium: Normal right atrial size. Tricuspid Valve: Normal tricuspid valve structure. Tywm-hv-frobhyao tricuspid regurgitation. Pulmonic Valve: Normal pulmonary valve structure. No significant pulmonary regurgitation. No pulmonary stenosis. IVC: Normal IVC size with normal respirophasic changes. Pericardium: No significant pericardial effusion. No pleural effusion. Measurements Heart Rate Aortic Valve Label Value Normal Value Label Value Normal Value Heart Rate 70 bpm AV Vmax 141 cm/s AV Vmean 100 cm/s AV VTI 30.9 cm AV PGmax 8 mmHg AV PGmean 4 mmHg AV Vmax, Caliper 141 cm/s Tricuspid Valve Label Value Normal Value TR Vmax 278 cm/s TR Pmax 31 mmHg RA Pressure 3 mmHg RVSP 34 mmHg (No Signature Object) Wall Motion Scores -1 - Not Scored, 0 - Unknown, 1 - Normal or hyperkinesia, 2 - Hypokinesia, 3 - Akinesia, 4 - Dyskinesia, 5 - Aneurysm Performing Organization Address [facility] Phone Number [facility] [place], [place] PHOSPHORUS (03/17/2019 7:52 AM DIETETIC TECH) Phosphorus 3.1 2.5 - 4.5 mg/dL [place] [address] [facility] Specimen Blood Performing Organization Address [facility] Phone Number [place] [address] [facility] [address] [place] [address] MAGNESIUM (03/17/2019 7:52 AM DIETETIC TECH) Magnesium 2.0 1.8 - 2.4 mg/dL [place] [address] [facility] Specimen Blood Performing Organization Address [facility] Phone Number [place] [address] [facility] [address] [place] [address] BASIC METABOLIC PANEL (03/17/2019 7:52 AM DIETETIC TECH) Glucose 131 (H) 70 - 100 mg/dL [address] BUN 10 6 - 22 mg/dL [address] Creatinine 0.70 0.60 - 1.[address] mg/dL BUN/Creatinine Ratio 14.3 10.0 - 25.[address] Sodium 136 135 - 145 meq/L [address] Potassium 4.0 3.5 - 5.3 meq/L [address] Chloride 104 99 - 110 meq/L [place] [address] [facility] CO2 21 20 - 29 meq/L [address] Anion Gap with K 15 6 - 20 meq/L [address] Calcium 9.7 8.5 - 10.5 mg/dL [address] Age 79 Years [place] [address] [facility] eGFR Non- 81 >=60 [place] [address] [facility] [place] mL/min/1.73m2 eGFR >90 >=[address] mL/min/1.73m2 Specimen Blood Performing Organization Address [facility] Phone Number [place] [address] [facility] [place] [address], [place] [address] EKG (03/17/2019 5:59 AM DIETETIC TECH)Only the most recent of6 resultswithin the time period is included. EKG WAVEFORM TRACEMASTER MANUELA RANGELB Normal sinus rhythm Low voltage QRS, consider pulmonary disease, pericardial effusion, or normal variant T wave abnormality, consider anterolateral ischemia Prolonged QT interval or tu fusion, consider myocardial disease, electrolyte imbalance, or drug effects Abnormal ECG When compared with ECG of 16-MAR-2019 21:16, Non-specific change in ST segment in Inferior leads ST no longer elevated in Lateral leads T wave inversion no longer evident in Inferior leads T wave inversion now evident in Lateral leads Ventricular Rate: 71 BPM Atrial Rate: 71 BPM P-R Interval: 156 ms QRS Duration: 82 ms Q-T Interval: 500 ms QTc Calculation(Bazett): 543 ms Calculated P [place]: 59 degrees Calculated R [place]: 45 degrees Calculated T [place]: 75 degrees Specimen Narrative Performed At Performing Organization Address [facility] Phone Number [employer]ATUM [employer]Y [employer]B PTT (03/16/2019 9:38 PM DIETETIC TECH) APTT 73 (H) 24 - [address] Specimen Blood Performing Organization Address [facility] Phone Number [address] [address] TROPONIN I (03/16/2019 9:33 PM DIETETIC TECH) Troponin I 0.188 (H) 0.000 - 0.028 ng/mL [address] Specimen Blood Performing Organization Address [facility] Phone Number [address] [place] [address] ACTIVATED CLOTTING TIME POCT (03/16/2019 5:45 PM DIETETIC TECH) Activated Clotting 257 (H) 100 - 150 Secs [facility] POINT OF CARE TESTING Specimen Blood Narrative Performed At DEVICE: [id number] [facility] POINT OF CARE TESTING Performing Organization Address City/State/Zipcode Phone Number [facility] [place]INT [place] [address] [place] [address] CARE TESTING Cardiac Cath Possible Angioplasty Stent Food Service Director - Left (03/16/2019 5:44 PM DIETETIC TECH ) Specimen Narrative Performed At [facility] Patient: VIDHI HAMMER [facility] Exam Date: 03/16/[address] Exam Time: 05:44 PM- 06:09 PM [place] [address] Department of Interventional Cardiology Diagnostic Left Heart Catheterization Report, Cardiac Interventional Report : 1940Fluoro Time: 12.5 min. Patient Status: InpatientAge: 79 year(s)Cath Status: Patient Room: [facility] Gender: Female Diagnostic Adventure Education Teacher:JUAN VU MD Data Center Operator:JUAN VU MD Indication:Angina/NM: myocardial infarction without ST elevation (NSTEMI). Interventional Conclusions: Interventional Summary Mid left anterior descending: A successful Balloon angioplasty was performed using a [place] EUPHORA RX 3.0X15. First diagonal: A successful Balloon angioplasty was performed using a EUPHORA 2.5X15 RX. Procedures Performed: Fluoro 0.1-60 Minutes. Medication/Infusion/Drip. Art Access - R radial artery. Selective Lt Coronary Angiography. Left Heart Cath With Ventriculogram. Selective Rt Coronary Angiography. PTCA. Drug Eluting Stent Placement. Radial Artery Compression Device. Diagnostic Findings: Coronary Angiography The coronary circulation is right dominant. Left Main Left main artery: The segment is large. Angiography shows no disease. Left Anterior Descending Left anterior descending artery: The segment is large. Mid left anterior descending: There is a 95 % stenosis. First diagonal: The segment is moderately sized. There is an 80 % stenosis. Circumflex Circumflex artery: The segment is large. Angiography shows no disease. First obtuse marginal: The segment is moderately sized. Angiography shows no disease. Right Coronary Right coronary artery: The segment is large. Proximal right coronary artery: There is a 20 % stenosis. Right posterior descending artery: The segment is large. Angiography shows no disease. Right Posterolateral Segment: The segment is large. Angiography shows no disease. Left Heart Cath Left ventricular function was assessed and demonstrates Abnormal LV wall motion. The apical segment is hypokinetic. All remaining scored wall segments are normal. Global left ventricular function is mildly depressed. Ejection fraction was calculated by a hand injection LV Gram with a value of 50%. Interventional Findings: Interventional Details Mid left anterior descending: The initial stenosis was 95 %. This was an ACC/ AHA High/C lesion for intervention. Guidewire crossing was successful. A successful Balloon angioplasty was performed using a CATH GUIDE 6FR LAUNCHER EBU3.5 during setup, a RUNTHROUGH XT FLOPPY during setup, and a EUPHORA 2.0X12 RXDuring Procedure. The total number of attempt(s) was 2. The maximum inflation pressure was 16(susan ). A successful Drug Eluting Stent was deployed using a RESOLUTE ARMANI RX2.52H44VM During Procedure. The total number of attempt(s) was 1. The maximum inflation pressure was 16(susan ). A successful Balloon angioplasty was performed using a NC EUPHORA RX 3.0X15 During Procedure. The total number of attempt(s) was 3. The maximum inflation pressure was 16(susan ). A successful Drug Eluting Stent was deployed using a RESOLUTE ARMANI RX2.48W69KG During Procedure. The total number of attempt(s) was 1. The maximum inflation pressure was 20(susan ). A successful Balloon angioplasty was performed using a NC EUPHORA RX 3.0X15 During Procedure. The total number of attempt(s) was 1. The maximum inflation pressure was 16(susan ). Following intervention there is a 0 % residual stenosis. There was ZANDER Flow 3 before the procedure and ZANDER Flow 3 following the procedure. No significant vessel dissection noted. First diagonal: The initial stenosis was 80 %. This was an ACC/AHA High/C lesion for intervention. Guidewire crossing was successful. A successful Balloon angioplasty was performed using a CATH GUIDE 6FR LAUNCHER EBU3.5 during setup, a GDWIRE FIELDER 180CM during setup, and a EUPHORA 2.5X15 RX During Procedure. The total number of attempt(s) was 1. The maximum inflation pressure was 16(susan ). Following intervention there is a 0 % residual stenosis. There was ZANDER Flow 3 before the procedure and ZANDER Flow 3 following the procedure. No significant vessel dissection noted. Procedure Narrative: Access Right radial artery: The puncture site was infiltrated with 1% Lidocaine. Vascular access was obtained using modified seldinger technique and a GLIDESHEATH SLENDER 6FR [id number] was advanced into the vessel. Hemostasis/Sheath Status: Hemostasis was successful using a(n) RADIAL TR BAND. Coronary Angiography Left Coronary System: A catheter was positioned into the Vessel Ostium under fluoroscopic guidance. Contrast injections were performed using hand injection. Angiograms were obtained in multiple views. Right Coronary System: A catheter was positioned into the Vessel Ostium under fluoroscopic guidance. Contrast injections were performed using hand injection. Angiograms were obtained in multiple views. Left Heart Cath Ventriculography was performed using 10 cc of contrast. Hemodynamic Impressions General Impressions: Hemodynamic assessment demonstrates Mild systemic hypertension, Left ventricular end diastolic pressure is mildly to moderately elevated. Hemodynamic Findings Pressures: Baseline: LVpressure 161mmHg, EDP 24.Baseline: AO pressure 140/61mmHg, mean 92. Hemodynamic Pressures-Phase: Baseline Location : LV Pressure s : 161 mmHg Pressure ed : 24 mmHg HR : 66 bpm Hemodynamic Pressures-Phase: Baseline Location : Ao Pressure s : 140 mmHg Pressure d : 61 mmHg Pressure m : 92 mmHg HR : 74 bpm Flow Calculations, Phase: Baseline VO2: 133.12 ml/min Shunts Acute complication: No complications Contrast: Description DoseUnit HIS No. Reference No. Serial No. Lot No. [id number] X-Ray: Exam total DAP:9326.54cGycm-sq Air Kerma/Exam Total Dose: Ordering Physician:ANDI CALDERON MD [facility] Breastfeeding Program Coordinator:ALEXANDER CAMPOS RN Scrub: JORGE MARINAT Monitor: PIEDAD ELLIOTT RN Corporate Communications Manager: RT TAYLOR(R) Primary Adventure Education Teacher:ANDI CALDERON MD Diagnostic Physician Signature: (No Signature Object) Interventional Physician Signature: (No Signature Object) Ventriculography Measurements and Wall Motion Measurements: Name Value EF:50 % Wall Motion: RAOMotion 1 Anterobasal:normal or hyperkinesia 2 Anterolateral:normal or hyperkinesia 3 Apical: hypokinesia 4 Diaphragmatic:normal or hyperkinesia 5 Posterobasal: normal or hyperkinesia NORWEGIAN (-1) Not Scored (0) unknown (1) normal or hyperkinesia (2) hypokinesia (3) akinesia (4) dyskinesia Procedure Note Interface, Inc Results No Pull Forward - 03/18/2019 11:31 AM DIETETIC TECH Patient: VIDHI HAMMER [facility] Exam Date: 03/16/[address] Exam Time: 05:44 PM-06:09 PM [place] [address] Department of Interventional Cardiology Diagnostic Left Heart Catheterization Report, Cardiac Interventional Report : 1940 Fluoro Time: 12.5 min. Patient Status: Inpatient Age: 79 year(s) Cath Status: Patient Room: [facility] Gender: Female Diagnostic Adventure Education Teacher: JUAN VU MD Data Center Operator: JUAN VU MD Indication: Angina/NM: myocardial infarction without ST elevation (NSTEMI). Interventional Conclusions: Interventional Summary Mid left anterior descending: A successful Balloon angioplasty was performed using a NC EUPHORA RX 3.0X15. First diagonal: A successful Balloon angioplasty was performed using a EUPHORA 2.5X15 RX. Procedures Performed: Fluoro 0.1-60 Minutes. Medication/Infusion/Drip. Art Access - R radial artery. Selective Lt Coronary Angiography. Left Heart Cath With Ventriculogram. Selective Rt Coronary Angiography. PTCA. Drug Eluting Stent Placement. Radial Artery Compression Device. Diagnostic Findings: Coronary Angiography The coronary circulation is right dominant. Left Main Left main artery: The segment is large. Angiography shows no disease. Left Anterior Descending Left anterior descending artery: The segment is large. Mid left anterior descending: There is a 95 % stenosis. First diagonal: The segment is moderately sized. There is an 80 % stenosis. Circumflex Circumflex artery: The segment is large. Angiography shows no disease. First obtuse marginal: The segment is moderately sized. Angiography shows no disease. Right Coronary Right coronary artery: The segment is large. Proximal right coronary artery: There is a 20 % stenosis. Right posterior descending artery: The segment is large. Angiography shows no disease. Right Posterolateral Segment: The segment is large. Angiography shows no disease. Left Heart Cath Left ventricular function was assessed and demonstrates Abnormal LV wall motion. The apical segment is hypokinetic. All remaining scored wall segments are normal. Global left ventricular function is mildly depressed. Ejection fraction was calculated by a hand injection LV Gram with a value of 50%. Interventional Findings: Interventional Details Mid left anterior descending: The initial stenosis was 95 %. This was an ACC/ AHA High/C lesion for intervention. Guidewire crossing was successful. A successful Balloon angioplasty was performed using a CATH GUIDE 6FR LAUNCHER EBU3.5 during setup, a RUNTHROUGH XT FLOPPY during setup, and a EUPHORA 2.0X12 RX During Procedure. The total number of attempt(s) was 2. The maximum inflation pressure was 16(susan ). A successful Drug Eluting Stent was deployed using a RESOLUTE ARMANI RX2.82U47YK During Procedure. The total number of attempt(s) was 1. The maximum inflation pressure was 16(susan ). A successful Balloon angioplasty was performed using a NC EUPHORA RX 3.0X15 During Procedure. The total number of attempt(s) was 3. The maximum inflation pressure was 16(susan ). A successful Drug Eluting Stent was deployed using a RESOLUTE ARMANI RX2.88I41QR During Procedure. The total number of attempt(s) was 1. The maximum inflation pressure was 20(susan ). A successful Balloon angioplasty was performed using a NC EUPHORA RX 3.0X15 During Procedure. The total number of attempt(s) was 1. The maximum inflation pressure was 16(susan ). Following intervention there is a 0 % residual stenosis. There was ZANDER Flow 3 before the procedure and ZANDER Flow 3 following the procedure. No significant vessel dissection noted. First diagonal: The initial stenosis was 80 %. This was an ACC/AHA High/C lesion for intervention. Guidewire crossing was successful. A successful Balloon angioplasty was performed using a CATH GUIDE 6FR LAUNCHER EBU3.5 during setup, a GDWIRE FIELDER 180CM during setup, and a EUPHORA 2.5X15 RX During Procedure. The total number of attempt(s) was 1. The maximum inflation pressure was 16(susan ). Following intervention there is a 0 % residual stenosis. There was ZANDER Flow 3 before the procedure and ZANDER Flow 3 following the procedure. No significant vessel dissection noted. Procedure Narrative: Access Right radial artery: The puncture site was infiltrated with 1% Lidocaine. Vascular access was obtained using modified seldinger technique and a GLIDESHEATH SLENDER 6FR [id number] was advanced into the vessel. Hemostasis/Sheath Status: Hemostasis was successful using a(n) RADIAL TR BAND. Coronary Angiography Left Coronary System: A catheter was positioned into the Vessel Ostium under fluoroscopic guidance. Contrast injections were performed using hand injection. Angiograms were obtained in multiple views. Right Coronary System: A catheter was positioned into the Vessel Ostium under fluoroscopic guidance. Contrast injections were performed using hand injection. Angiograms were obtained in multiple views. Left Heart Cath Ventriculography was performed using 10 cc of contrast. Hemodynamic Impressions General Impressions: Hemodynamic assessment demonstrates Mild systemic hypertension, Left ventricular end diastolic pressure is mildly to moderately elevated. Hemodynamic Findings Pressures: Baseline: LV pressure 161mmHg, EDP 24. Baseline: AO pressure 140/ 61mmHg, mean 92. Hemodynamic Pressures-Phase: Baseline Location : LV Pressure s : 161 mmHg Pressure ed : 24 mmHg HR : 66 bpm Hemodynamic Pressures-Phase: Baseline Location : Ao Pressure s : 140 mmHg Pressure d : 61 mmHg Pressure m : 92 mmHg HR : 74 bpm Flow Calculations, Phase: Baseline VO2: 133.12 ml/min Shunts Acute complication: No complications Contrast: Description Dose Unit HIS No. Reference No. Serial No. Lot No. [id number] ml C34 C34 X-Ray: Exam total DAP: 9326.54 cGycm-sq Air Kerma/Exam Total Dose: Ordering Physician: ANDI CALDERON MD [facility] Breastfeeding Program Coordinator: ALEXANDER CAMPOS RN Scrub: DEEP MARINA Monitor: PIEDAD ELLIOTT RN Corporate Communications Manager: TRINA LEY RT(R) Primary Adventure Education Teacher: ANDI CALDERON MD Diagnostic Physician Signature: (No Signature Object) Interventional Physician Signature: (No Signature Object) Ventriculography Measurements and Wall Motion Measurements: Name Value EF: 50 % Wall Motion: LUJAN Motion 1 Anterobasal: normal or hyperkinesia 2 Anterolateral: normal or hyperkinesia 3 Apical: hypokinesia 4 Diaphragmatic: normal or hyperkinesia 5 Posterobasal: normal or hyperkinesia NORWEGIAN (-1) Not Scored (0) unknown (1) normal or hyperkinesia (2) hypokinesia (3) akinesia (4) dyskinesia Performing Organization Address [facility] Phone Number [facility], [place] TSH (03/16/2019 2:00 PM DIETETIC TECH) TSH 1.75 0.40 - 5.00 uIU/mL [address] Specimen Blood Performing Organization Address [facility] Phone Number [address] [place] [address], [place] [address] PTT (03/16/2019 2:00 PM DIETETIC TECH) APTT 90 (H) 24 - [address] Specimen Blood Performing Organization Address [facility] Phone Number [address] [place] [address], [place] [address] ECHO ADULT COMPLETE (03/16/2019 11:52 AM DIETETIC TECH) Specimen Narrative Performed At [facility] Patient: VIDHI HAMMER MR#: [id number] Exam Date: 03/16/2019 [address]acic [address], [place] : 139/81 mmHg HR:69 bpm : 1940Exam Location: Bedside Height:61.00 "( 154.9 cm) Age: 79 year(s)Patient Room: 641 Weight:168 lbs.( 76.20 kg) Gender:FemalePatient Status: Inpatient BSA: 1.75 m2 Sample Mounter: TERESITA OSORIO RDCS Reading Physician: CAIN JHAVERI MD [facility] Ordering Physician:AJAY BEDOYA MD Procedure Indication(s):NSTEMI Examination:TTE Complete 2D(m-mode) , Complete Spectral Doppler, Color Doppler, with Contrast,Definity Conclusions Left Ventricle: The ejection fraction is visually estimated to be 40 %. The basal inferior, mid anteroseptal, apical anterior, apical septal, apical inferior and apex wall segments are hypokinetic. Comparison Study Comparison Study: No previous echo was available for comparison Findings Left Ventricle: Normal left ventricular size. Mildly reduced left ventricular systolic function. The ejection fraction is visually estimated to be 40 %. The basal inferior, mid anteroseptal, apical anterior, apical septal, apical inferior and apex wall segments are hypokinetic. Grade 1 left ventricular diastolic dysfunction. IVS: There is sigmoid septal appearance. Left Atrium: Normal left atrial size. Aortic Valve: The aortic valve is tricuspid. Mild aortic cuspal thickening. Trivial aortic regurgitation. No aortic stenosis. Aorta: The sinus of valsalva is normal in size measuring 28.0 mm. The ascending aorta is normal in size measuring 36.0 mm. Mitral Valve: Mild mitral leaflet thickening. There is mitral annular calcification. Mild mitral regurgitation. No mitral stenosis. IAS: No gross evidence of shunt flow seen; however the possibility of a PFO cannot be completely ruled out. Right Ventricle: Normal right ventricular size. Normal right ventricular systolic function. Normal right ventricular wall thickness. Pulmonary artery systolic pressure is measured at 23 mmHg. TAPSE measures 17 mm. Pulmonary Artery: No significant pulmonary artery hypertension. Right Atrium: Normal right atrial size by visual assessment. Tricuspid Valve: Normal tricuspid valve structure. [id number] tricuspid regurgitation. Pulmonic Valve: Normal pulmonary valve structure. No significant pulmonary regurgitation. IVC: Normal IVC size with normal respirophasic changes. Pericardium: No significant pericardial effusion. There is pericardial fat. Measurements Left Ventricle Aortic Valve LabelValueNormal Value LabelValue Normal Value LVDd, 2D 42.4 mm LVOT Jmld422 cm/s LVDs, 2D 29.2 mm AV Dyej125 cm/s IVSd, 2D 12.3 mm LVOTd19 mm LVPWd, 2D10.2 mm LVOT VTI 25 cm FS, 2D 31.13 % LVOT PGmax 4 mmHg LVEDV, 2D80 ml AV Vmean 92 cm/s LVESV, 2D33 ml AV VTI 29.2 cm Cardiac Output 4.9 L/min AV PGmax 7 mmHg Cardiac Index2.8 AV PGmean4 mmHg L/min/m-sqAVA (Vmax) 2.2 cm-sq Right Ventricle AV Vmax, Caliper 128 cm/s LabelValueNormal Value Mitral Valve TAPSE17 mm LabelValue Normal Value Left Atrium MV E Vmax81 cm/s LabelValueNormal Value MV A Beti490 cm/s LADs Long. 54 mm MV E/A 0.67 LA Volume Index22.5 ml/m-sq MV E/E' oafsimc01.1 Aorta MV E/E' septal 17.4 LabelValueNormal Value MV Dec Jdfy516 ms Ao Asc 36 mm MV E' septal 4.6 cm/s Ao Sinus, MM 29 mm MV E' lateral5 cm/s Ao Sinus, 2D 28 mm Tricuspid Valve Great Vessels LabelValue Normal Value LabelValueNormal Value TR Qvtr421 cm/s PVein S60 cm/s TR Pmax20 mmHg PVein D34 cm/s RA Pressure3 mmHg S/D Ratio1.8 RVSP 23 mmHg Heart Rate Pulmonic Valve LabelValueNormal Value LabelValue Normal Value Heart Rate 69 bpm PV Vmax70 cm/s PV PGmax 2 mmHg Wall Motion Scores -1 - Not Scored, 0 - Unknown, 1 - Normal or hyperkinesia, 1.5 - Mild Hypokinetic, 2 - Hypokinesia, 2.5 - Severe Hypokinetic,3 - Akinesia, 3s - Akinetic w/scar, 4 - Dyskinesia, 4s - Dyskinetic w/scar, 5 - Aneurysm Procedure Note Interface, Inc Results No Pull Forward - 03/16/2019 2:28 PM DIETETIC TECH Patient: VIDHI HAMMER MR#: [id number] Exam Date: 03/16/2019 Transthoracic E[address] [address] BP: 139/81 mmHg HR: 69 bpm : 1940 Exam Location: Bedside Height: 61.00 "(154.9 cm) Age: 79 year(s) Patient Room: 641 Weight: 168 lbs.(76.20 kg) Gender: Female Patient Status: Inpatient BSA: 1.75 m2 Sample Mounter: TERESITA OSORIO RDCS Reading Physician: CAIN JHAVERI MD [facility] Ordering Physician: AJAY BEDOYA MD Procedure Indication(s): NSTEMI Examination: TTE Complete 2D(m-mode), Complete Spectral Doppler, Color Doppler, with Contrast,Definity Conclusions Left Ventricle: The ejection fraction is visually estimated to be 40 %. The basal inferior, mid anteroseptal, apical anterior, apical septal, apical inferior and apex wall segments are hypokinetic. Comparison Study Comparison Study: No previous echo was available for comparison Findings Left Ventricle: Normal left ventricular size. Mildly reduced left ventricular systolic function. The ejection fraction is visually estimated to be 40 %. The basal inferior, mid anteroseptal, apical anterior, apical septal, apical inferior and apex wall segments are hypokinetic. Grade 1 left ventricular diastolic dysfunction. IVS: There is sigmoid septal appearance. Left Atrium: Normal left atrial size. Aortic Valve: The aortic valve is tricuspid. Mild aortic cuspal thickening. Trivial aortic regurgitation. No aortic stenosis. Aorta: The sinus of valsalva is normal in size measuring 28.0 mm. The ascending aorta is normal in size measuring 36.0 mm. Mitral Valve: Mild mitral leaflet thickening. There is mitral annular calcification. Mild mitral regurgitation. No mitral stenosis. IAS: No gross evidence of shunt flow seen; however the possibility of a PFO cannot be completely ruled out. Right Ventricle: Normal right ventricular size. Normal right ventricular systolic function. Normal right ventricular wall thickness. Pulmonary artery systolic pressure is measured at 23 mmHg. TAPSE measures 17 mm. Pulmonary Artery: No significant pulmonary artery hypertension. Right Atrium: Normal right atrial size by visual assessment. Tricuspid Valve: Normal tricuspid valve structure. Jlkm-gg-mdcpnhkd tricuspid regurgitation. Pulmonic Valve: Normal pulmonary valve structure. No significant pulmonary regurgitation. IVC: Normal IVC size with normal respirophasic changes. Pericardium: No significant pericardial effusion. There is pericardial fat. Measurements Left Ventricle Aortic Valve Label Value Normal Value Label Value Normal Value LVDd, 2D 42.4 mm LVOT Vmax 100 cm/s LVDs, 2D 29.2 mm AV Vmax 128 cm/s IVSd, 2D 12.3 mm LVOTd 19 mm LVPWd, 2D 10.2 mm LVOT VTI 25 cm FS, 2D 31.13 % LVOT PGmax 4 mmHg LVEDV, 2D 80 ml AV Vmean 92 cm/s LVESV, 2D 33 ml AV VTI 29.2 cm Cardiac Output 4.9 L/min AV PGmax 7 mmHg Cardiac Index 2.8 AV PGmean 4 mmHg L/min/m-sq LAURA (Vmax) 2.2 cm-sq Right Ventricle AV Vmax, Caliper 128 cm/s Label Value Normal Value Mitral Valve TAPSE 17 mm Label Value Normal Value Left Atrium MV E Vmax 81 cm/s Label Value Normal Value MV A Vmax 121 cm/s LADs Long. 54 mm MV E/A 0.67 LA Volume Index 22.5 ml/m-sq MV E/E' lateral 16.1 Aorta MV E/E' septal 17.4 Label Value Normal Value MV Dec Time 201 ms Ao Asc 36 mm MV E' septal 4.6 cm/s Ao Sinus, MM 29 mm MV E' lateral 5 cm/s Ao Sinus, 2D 28 mm Tricuspid Valve Great Vessels Label Value Normal Value Label Value Normal Value TR Vmax 221 cm/s PVein S 60 cm/s TR Pmax 20 mmHg PVein D 34 cm/s RA Pressure 3 mmHg S/D Ratio 1.8 RVSP 23 mmHg Heart Rate Pulmonic Valve Label Value Normal Value Label Value Normal Value Heart Rate 69 bpm PV Vmax 70 cm/s PV PGmax 2 mmHg Wall Motion Scores -1 - Not Scored, 0 - Unknown, 1 - Normal or hyperkinesia, 1.5 - Mild Hypokinetic, 2 - Hypokinesia, 2.5 - Severe Hypokinetic, 3 - Akinesia, 3s - Akinetic w/scar, 4 - Dyskinesia, 4s - Dyskinetic w/scar, 5 - Aneurysm Performing Organization Address [facility] Phone Number [facility] [place] TROPONIN I (03/16/2019 10:36 AM DIETETIC TECH) Troponin I 0.225 (H) 0.000 - 0.028 ng/mL [place] [address] [facility] Specimen Blood Performing Organization Address [facility] Phone Number [place] [address] [place] [address] GLYCATED HEMOGLOBIN (03/16/2019 7:19 AM DIETETIC TECH) Hgb A1C 6.6 (H) <5.7 % [facility] Estimated Average 143 mg/dL [facility] Specimen Blood Narrative Performed At ADA Interpretive Guidelines [facility] When Using HbA1c for Diagnosis Prediabetes 5.7 - 6.4% Diabetes >=6.5% When Using HbA1c for Monitoring a Person Known to Have Diabetes, < 7% is a reasonable goal for many non adults, < 7.5% should be considered in children and adolescents (<19 years) with type 1 diabetes. ADA Standards of Medical Care in Diabetes - 2019 Performing Organization Address City/[facility]/Zipcode Phone Number [facility] [address] [address] [facility] [place] [address] LIPID PANEL (03/16/2019 7:19 AM DIETETIC TECH) Cholesterol 212 (H) 100 - 200 mg/dL [facility] Triglyceride 123 50 - 150 mg/dL [facility] HDL 70 40 - 80 mg/dL [facility] LDL 117 0 - 129 mg/dL [facility] Specimen Blood Performing Organization Address City/[facility]/Zipcode Phone Number [facility] [address] [place] [address] LAB ONLY-COMPLETE BLOOD COUNT WITH DIFFERENTIAL (03/16/2019 7:19 AM DIETETIC TECH) WBC 7.0 4.0 - 11.0 K/uL [address] RBC 4.58 3.80 - 5.30 M/uL [address] Hemoglobin 13.4 11.5 - 15.8 g/dL [address] Hematocrit 41.4 35.0 - 45.0 % [address] MCV 90.4 80.0 - 98.[address] MCH 29.3 25.5 - 34.[address] MCHC 32.4 31.5 - 36.5 g/dL [address] RDW-CV 13.2 11.5 - 15.5 % [address] RDW-SD 43.5 35.5 - 50.[address] Platelet Count 280 140 - 400 K/uL [address] MPV 9.6 8.5 - 12.[address] Seg Neut Absolute 3.8 1.8 - 8.0 K/uL [address] Lymphocytes Absolute 1.9 0.8 - 4.1 K/uL [address] Monocytes Absolute 0.8 0.0 - 1.0 K/uL [address] Eosinophils Absolute 0.3 0.0 - 0.7 K/uL [address] Basophil Absolute 0.1 0.0 - 0.2 K/uL [address] Immature Granulocyte 0.02 0.00 - 0.06 K/uL [address] Absolute Neutrophils Abs. (Segs 3,800 /uL [place] [address] [facility] and Bands) Neutrophils Percent 54.5 % [address] Lymphocytes Percent 27.6 % [address] Monocytes Percent 11.4 % [address] Immature Granulocyte 0.3 % [address] Percent Eosinophils Percent 4.9 % [address] Basophil Percent 1.3 % [address] Nucleated RBC 0 /[address] Specimen Blood Performing Organization Address [facility] Phone Number [address] [place] [address] PTT (03/16/2019 7:19 AM DIETETIC TECH) APTT 38 (H) 24 - [address] Specimen Blood Performing Organization Address [facility] Phone Number [address] [place] [address] LACTIC ACID (03/16/2019 7:19 AM DIETETIC TECH) Lactic Acid 1.7 0.5 - 2.2 mmol/L [address] Specimen Blood Performing Organization Address [facility] Phone Number [address] [place] [phone] COMPREHENSIVE METABOLIC PANEL (03/16/2019 7:19 AM DIETETIC TECH) Glucose 151 (H) 70 - 100 mg/dL [address] BUN 13 6 - 22 mg/dL [address] Creatinine 0.71 0.60 - 1.[address] mg/dL BUN/Creatinine Ratio 18.3 10.0 - 25.[address] Sodium 138 135 - 145 meq/L [address] Potassium 3.8 3.5 - 5.3 meq/L [address] Chloride 104 99 - 110 meq/L [address] CO2 24 20 - 29 meq/L [address] Anion Gap with K 14 6 - 20 meq/L [address] Calcium 10.0 8.5 - 10.[address] mg/dL Protein Total 7.7 6.0 - 8.2 g/dL [address] Albumin 4.3 3.5 - 5.0 g/dL [address] Alkaline Phosphatase 86 30 - 150 U/L [address] AST - SGOT 22 0 - 35 U/L [address] ALT - SGPT 26 0 - 55 U/L [address] Bilirubin Total 0.4 0.2 - 1.2 mg/dL [address] Age [address] eGFR Non- 79 >=[address] [place] mL/min/1.73m2 eGFR >90 >=[address] mL/min/1.73m2 Specimen Blood Performing Organization Address [facility] Phone Number [address] [place] [phone] TROPONIN I (03/16/2019 7:19 AM DIETETIC TECH) Troponin I 0.238 (H) 0.000 - 0.028 ng/mL [address] Specimen Blood Performing Organization Address [facility] Phone Number [address] [place] [phone] documented in this encounter Visit Diagnoses Diagnosis ST elevation myocardial infarction (STEMI), unspecified artery (HCC) Anxiety Anxiety state, unspecified documented in this encounter Discharge Diagnoses Not on filedocumented in this encounter Administered Medications Medication Order MAR Action Action Date Dose Rate Site acetaminophen (TYLENOL) tablet Given 03/19/2019 7:27 AM DIETETIC TECH 650 mg 650 mg 650 mg, Oral, Every four hours prn, Starting 03/16/19 at 1837, Until Discontinued, mild pain, Post-Procedure (Cath), Pain Scale 1 - 3, Given 03/18/2019 8:00 PM DIETETIC TECH 650 mg Given 03/17/2019 8:26 AM DIETETIC TECH 650 mg aspirin chewable tablet 81 mg Given 03/19/2019 8:58 AM DIETETIC TECH 81 mg 81 mg, Oral, Daily, First dose on Sat03/17/19 at 0900, Until Discontinued, Post-Procedure (Cath) Given 03/18/2019 8:26 AM DIETETIC TECH 81 mg Given 03/17/2019 8:26 AM DIETETIC TECH 81 mg atorvaSTATin (LIPITOR) tablet 40 mg Given 03/19/2019 8:58 AM DIETETIC TECH 40 mg 40 mg, Oral, Daily, First dose on Sat03/16/19 at 0900, Until Discontinued Given 03/18/2019 8:26 AM DIETETIC TECH 40 mg Given 03/17/2019 8:26 AM DIETETIC TECH 40 mg clopidogrel (PLAVIX) tablet 75 mg Given 03/19/2019 8:59 AM DIETETIC TECH 75 mg 75 mg, Oral, Daily, 365 doses, First dose on Sat03/17/19 at 0900, Last dose on Sat03/15/20 at 0900, Post-Procedure (Cath) Given 03/18/2019 8:26 AM DIETETIC TECH 75 mg Given 03/17/2019 8:26 AM DIETETIC TECH 75 mg hydrALAZINE (APRESOLINE) injection solution 10 mg 10 mg, IV, Every six hours prn, Starting Sat03/16/19 at 2305, Until Discontinued, specified parameter, to keep SBP less than 150 mmHg, 1 mL, Post-Procedure (Cath ), Repeat in 20 minutes if needed. If not successful after two doses, contact the interventional cardiology team., hydrOXYzine pamoate (VISTARIL) capsule 25 mg Given 03/17/2019 5:01 PM DIETETIC TECH 25 mg 25 mg, Oral, Every six hours prn, Starting Sat03/17/19 at 0921, Until Discontinued, anxiety, nausea, other (Specify), pain Given 03/17/2019 9:31 AM DIETETIC TECH 25 mg isosorbide mononitrate (IMDUR) SR tablet (24 Given 03/19/2019 8:58 AM DIETETIC TECH 30 mg hr) 30 mg 30 mg, Oral, Daily, First dose on Sat03/18/19 at 0950, Until Discontinued, Tablet may be broken in half, but should not be crushed or chewed., Given 03/18/2019 11:58 AM DIETETIC TECH 30 mg levothyroxine tablet 100 mcg Given 03/19/2019 8:58 AM DIETETIC TECH 100 mcg 100 mcg, Oral, DAILY, First dose on Sat03/16/19 at 0900, Until Discontinued Given 03/18/2019 8:26 AM DIETETIC TECH 100 mcg Given 03/17/2019 8:26 AM DIETETIC TECH 100 mcg lisinopril (PRINIVIL, ZESTRIL) tablet 10 mg Given 03/19/2019 8:58 AM DIETETIC TECH 10 mg 10 mg, Oral, Daily, First dose on Estephania 03/19/19 at 0900, Until Discontinued, Hold for SBP less than 100, metoclopramide (REGLAN) inj soln 5 mg 5 mg, IV, Every six hours prn, Starting Sat03/16/19 at 0700, Until Discontinued , nausea, vomiting, 2 mL, Use SECOND. If ineffective and ondansetron used, call physician for alternative If preference is to further dilute for IV administration: First draw up patient-specific dose, then dilute to 10 mL with 0.9% sodium chloride., metoprolol succinate (TOPROL XL) SR tablet Given 03/19/2019 8:58 AM DIETETIC TECH 50 mg (24 hr) 50 mg 50 mg, Oral, Daily, First dose on Sat03/18/19 at 0950, Until Discontinued, Tablet may be broken in half, but should not be crushed or chewed. Hold for SBP less than 100 Hold for HR less than 60, Given 03/18/2019 10:50 AM DIETETIC TECH 50 mg morphine injection solution (conc: 10 mg/mL) 2 Given 03/17/2019 4:18 PM DIETETIC TECH 2 mg mg 2 mg, IV, Every four hours prn, Starting Sat03/17/19 at 1128, Until Discontinued, severe pain, 1 mL nitroglycerin (NITROSTAT) sublingual tablet Given 03/16/2019 9:07 PM DIETETIC TECH 0.4 mg 0.4 mg 0.4 mg, Sublingual, Every five minutes prn, Starting Sat03/16/19 at 1816, Until Discontinued, chest pain, At onset of chest pain, dissolve one tablet under tongue. May repeat every 5 minutes for 3 doses. Do not crush or chew., Given 03/16/2019 8:41 PM DIETETIC TECH 0.4 mg ondansetron (ZOFRAN ODT) dispersible tablet 4 mg 4 mg, Oral, Every four hours prn, Starting Sat03/16/19 at 0754, Until Discontinued, nausea, vomiting, Use FIRST. If ineffective after 30 minutes use ondansetron IV , ondansetron (ZOFRAN) injection solution 4 mg Given 03/16/2019 8:33 PM DIETETIC TECH 4 mg 4 mg, IV, Every four hours prn, Starting Sat03/16/19 at 0754, Until Discontinued, nausea, vomiting, 2 mL, Use SECOND. If ineffective after 30 minutes and ondansetron ODT used, call physician for alternative. If preference is to further dilute for IV administration: First draw up patient-specific dose, then dilute to 10 mL with 0.9% sodium chloride., sodium chloride 0.9% flush (adult) 10 mL Given 03/19/2019 8:59 AM DIETETIC TECH 10 mL 10 mL, IV, Two times a day and prn, First dose on Sat03/16/19 at 0900, Until Discontinued, 10 mL, Flush IV line as scheduled and as often as necessary before and after meds., Given 03/18/2019 9:05 PM DIETETIC TECH 10 mL Given 03/18/2019 8:27 AM DIETETIC TECH 10 mL traMADol (ULTRAM) tablet 50 mg Given 03/18/2019 8:26 AM DIETETIC TECH 50 mg 50 mg, Oral, Every six hours prn, Starting Sat03/17/19 at 1129, Until Discontinued, moderate pain, Recommended maximum daily dose of [id number]=122 mg. Recommended maximum daily dose in patients 75 years or oddhb=663 mg., Given 03/17/2019 11:32 PM DIETETIC TECH 50 mg Given 03/17/2019 5:01 PM DIETETIC TECH 50 mg Medication Order MAR Action Action Date Dose Rate Site amLODIPine (NORVASC) tablet 10 mg Given 03/16/2019 8:21 PM DIETETIC TECH 10 mg 10 mg, Oral, Every evening, First dose on Sat03/16/19 at 2100, Until Discontinued, Hold for SBP less than 100, aspirin chewable tablet 243 mg Given 03/16/2019 11:24 AM DIETETIC TECH 243 mg 243 mg, Oral, One time, 1 dose, Sat03/16/19 at 1230, Prep Orders (Cath) if inpatient - floor RN to release, Patient to receive 325 mg aspirin prior to procedure If patient currently taking aspirin at home and has taken their dose today prior to procedure: administer aspirin dosage so that total amount prior to procedure equals 325 mg, aspirin chewable tablet 81 mg Given 03/16/2019 9:29 AM DIETETIC TECH 81 mg 81 mg, Oral, Daily, First dose on Sat03/16/19 at 0900, Until Discontinued clopidogrel (PLAVIX) tablet 300 mg Given 03/16/2019 11:24 AM DIETETIC TECH 300 mg 300 mg, Oral, Now, 1 dose, Sat03/16/19 at 1000 fentaNYL 100 mcg/2 mL preservative free Given 03/16/2019 10:02 PM DIETETIC TECH 50 mcg injection solution 12.5-300 mcg 12.5-300 mcg, IV, Administer in Cardiac Food Service Director, 1 dose, Sat03/16/19 at 2215, 6 mL, Under the direction of the provider in CCL. Do not give on the floor. For cardiac catheterization sedation under direction provider privileged to perform sedation., fentaNYL 100 mcg/2 mL preservative free Given 03/16/2019 5:32 PM DIETETIC TECH 50 mcg injection solution 25-300 mcg 25-300 mcg, IV, PRN per parameter, Starting Sat03/16/19 at 1545, Until Sat03/16/19 at 1839, other (Specify), sedation for cardiac catheterization, 6 mL, Pre-Procedure (Cath), procedural area to release, For sedation under direction provider privileged to perform sedation. Do not give on the floor., hEParin (50 units/mL) in Rate Verify 03/16/2019 2:55 PM 15 Units/kg/hr 22.9 mL/hr D5W premixed IV solution DIETETIC TECH (STANDARD-weight based) 0-50 Units/kg/hr 76.4 kg (0-76.4 mL/hr), IV, at 0-76.4 mL/hr, Titrate, Starting Sat03/16/19 at 0805, Until Sat03/16/19 at 1841, 500 mL, Start initial infusion at 15 units/kg/hr. Notify physician if initial infusion exceeds 1,500 units/hr. Adjust heparin infusion based on sliding scale: * aPTT less than 60 sec ------ Give 70 units/kg IV bolus and add 4 units/kg/hr to current rate * aPTT 60-69.9 sec Give 35 units/kg IV bolus and add 2 units/kg/hr to current rate * aPTT 70-120.9 sec No change (therapeutic) * aPTT 121-135.9 sec Subtract 2 units/kg/hr from current rate * aPTT 136-149.9 sec --------- Hold heparin for 1 hour and subtract 3 units/kg/hr from current rate * aPTT 150 sec or greater - Redraw STAT aPTT and hold heparin. Draw hourly aPTT using routine specified time until less than 150 sec, then restart heparin infusion at 3 units/kg/hr less than the previous rate, give NO BOLUS and resume every 6 hour aPTT. AFTER PROCEDURE: When restarting infusion after it's been held for a procedure, restart infusion at "starting" dose of 15 units/kg/hr and follow titration orders. IF infusion was running at less than 15 units/kg/hr prior to procedure, restart at that rate and follow titration orders., New Bag 03/16/2019 7:43 AM DIETETIC TECH 15 Units/kg/hr 22.9 mL/hr hEParin (50 units/mL) in D5W New Bag 03/16/2019 9:39 PM 15 Units/kg/hr 22.9 mL/hr premixed IV solution DIETETIC TECH (STANDARD-weight based) 0-50 Units/kg/hr 76.4 kg (0-76.4 mL/hr), IV, at 0-76.4 mL/hr, Titrate, Starting Sat03/16/19 at 2215, Until Sat03/16/19 at 2225, 500 mL, Start initial infusion at 15 units/kg/hr. Notify physician if initial infusion exceeds 1,500 units/hr. Adjust heparin infusion based on sliding scale: * aPTT less than 60 sec ------ Give 70 units/kg IV bolus and add 4 units/kg/hr to current rate * aPTT 60-69.9 sec Give 35 units/kg IV bolus and add 2 units/kg/hr to current rate * aPTT 70-120.9 sec No change (therapeutic) * aPTT 121-135.9 sec Subtract 2 units/kg/hr from current rate * aPTT 136-149.9 sec --------- Hold heparin for 1 hour and subtract 3 units/kg/hr from current rate * aPTT 150 sec or greater - Redraw STAT aPTT and hold heparin. Draw hourly aPTT using routine specified time until less than 150 sec, then restart heparin infusion at 3 units/kg/hr less than the previous rate, give NO BOLUS and resume every 6 hour aPTT. AFTER PROCEDURE: When restarting infusion after it's been held for a procedure, restart infusion at "starting" dose of 15 units/kg/hr and follow titration orders. IF infusion was running at less than 15 units/kg/hr prior to procedure, restart at that rate and follow titration orders., hEParin (50 units/mL) in Restarted 03/18/2019 4:54 AM 16 Units/kg/hr 25.1 mL/hr D5W premixed IV solution DIETETIC TECH (STANDARD-weight based) 0-50 Units/kg/hr 78.4 kg (0-78.4 mL/hr), IV, at 0-78.4 mL/hr, Titrate, Starting Tu03/17/19 at 1235, Until Sat03/18/19 at 0945, 500 mL, Start initial infusion at 15 units/kg/hr. Notify physician if initial infusion exceeds 1,500 units/hr. Adjust heparin infusion based on sliding scale: * aPTT less than 60 sec ------ Give 70 units/kg IV bolus and add 4 units/kg/hr to current rate * aPTT 60-69.9 sec Give 35 units/kg IV bolus and add 2 units/kg/hr to current rate * aPTT 70-120.9 sec No change (therapeutic) * aPTT 121-135.9 sec Subtract 2 units/kg/hr from current rate * aPTT 136-149.9 sec --------- Hold heparin for 1 hour and subtract 3 units/kg/hr from current rate * aPTT 150 sec or greater - Redraw STAT aPTT and hold heparin. Draw hourly aPTT using routine specified time until less than 150 sec, then restart heparin infusion at 3 units/kg/hr less than the previous rate, give NO BOLUS and resume every 6 hour aPTT. AFTER PROCEDURE: When restarting infusion after it's been held for a procedure, restart infusion at "starting" dose of 15 units/kg/hr and follow titration orders. IF infusion was running at less than 15 units/kg/hr prior to procedure, restart at that rate and follow titration orders., Rate Change 03/17/2019 7:26 PM DIETETIC TECH 19 Units/kg/hr 29.8 mL/hr New Bag 03/17/2019 1:14 PM DIETETIC TECH 15 Units/kg/hr 23.5 mL/hr heparin (porcine) (5000 units/1 mL) IV Given 03/16/2019 9:35 PM DIETETIC TECH 5,300 Units dose 5,300 Units 5,300 Units (rounded from 5,348 Units=70 Units/kg 76.4 kg), IV, Now, 1 dose, Sat03/16/19 at 2115, 2 mL, hEParin (porcine) injection solution (5000 units/1 mL) IV for loading dose - round to the nearest 100 units up to a maximum initial bolus of hEParin 7500 units., heparin (porcine) (5000 units/1 mL) IV Given 03/17/2019 7:28 PM DIETETIC TECH 5,500 Units dose 5,500 Units 5,500 Units (rounded from 5,488 Units=70 Units/kg 78.4 kg), IV, PRN per parameter, Starting Tu03/17/19 at 1130, Until Sat03/18/19 at 0945, other (Specify), * aPTT less than 60 seconds - Give 70 units/kg IV bolus and add 4 units/kg/hr to current rate of infusion, 2 mL, Supplemental bolus doses based on aPTT: * aPTT less than 60 seconds - Give 70 units/kg IV bolus and add 4 units/kg/hr to current rate of infusion. * aPTT 60 to 69.9 seconds - Give 35 units/kg IV bolus and add 2 units/kg/hr to current rate of infusion. Round to the nearest 100 units up to a maximum bolus of heparin 7500 units , heparin (porcine) injection solution Given 03/16/2019 6:02 PM DIETETIC TECH 2,000 Units 0-12,000 Units 0-12,000 Units, IV, Administer in Cardiac Food Service Director, 1 dose, Sat03/16/19 at 1805, 12 mL, Under the direction of the provider in CCL. Do not give on the floor., iohexol (OMNIPAQUE) 350 mg/mL solution 130 Given 03/16/2019 6:17 PM DIETETIC TECH 130 mL mL 130 mL, Intra-arterial, One time, 1 dose, Sat03/16/19 at 1820, 150 mL iohexol (OMNIPAQUE) 350 mg/mL solution 35 mL Given 03/16/2019 10:50 PM DIETETIC TECH 35 mL 35 mL, Intra-arterial, One time, 1 dose, Sat03/16/19 at 2255, 50 mL lidocaine PF (XYLOCAINE-MPF) 1 % preservative Given 03/16/2019 5:35 PM DIETETIC TECH 2 mL free injection solution 0-40 mL 0-40 mL, Subcutaneous, Administer in Cardiac Food Service Director, 1 dose, Sat03/16/19 at 1735, 60 mL, Given by provider in CCL. Do not give on the floor., lidocaine PF (XYLOCAINE-MPF) 1 % preservative Given 03/16/2019 10:03 PM DIETETIC TECH 2 mL free injection solution 0-40 mL 0-40 mL, Subcutaneous, Administer in Cardiac Food Service Director, 1 dose, Sat03/16/19 at 2215, 40 mL, Given by provider in CCL. Do not give on the floor., lisinopril (PRINIVIL, ZESTRIL) tablet 5 mg Given 03/18/2019 8:26 AM DIETETIC TECH 5 mg 5 mg, Oral, Daily, First dose on Sat03/17/19 at 1050, Until Discontinued, Hold for SBP less than 100, Given 03/17/2019 1:14 PM DIETETIC TECH 5 mg lisinopril (PRINIVIL, ZESTRIL) tablet 5 mg Given 03/18/2019 10:49 AM DIETETIC TECH 5 mg 5 mg, Oral, One time, 1 dose, Sat03/18/19 at 1050 LORazepam (ATIVAN) tablet 0.5 mg Given 03/16/2019 2:55 PM DIETETIC TECH 0.5 mg 0.5 mg, Oral, One time, 1 dose, Sat03/16/19 at 1500 metoprolol tartrate (LOPRESSOR) half-tablet Given 03/18/2019 8:26 AM DIETETIC TECH 12.5 mg 12.5 mg 12.5 mg, Oral, Two times a day, First dose on Sat03/16/19 at 0900, Until Discontinued, Hold for SBP less than 100 Hold for HR less than 60, Given 03/17/2019 8:09 PM DIETETIC TECH 12.5 mg Given 03/17/2019 8:26 AM DIETETIC TECH 12.5 mg metoprolol tartrate (LOPRESSOR) half-tablet Given 03/18/2019 9:32 AM DIETETIC TECH 12.5 mg 12.5 mg 12.5 mg, Oral, One time, 1 dose, 03/18/19 at 1015 midazolam (VERSED) injection solution 0.5-10 Given 03/16/2019 5:38 PM DIETETIC TECH 1 mg mg 0.5-10 mg, IV, PRN per parameter, Starting Sat03/16/19 at 1545, Until Sat03/16/19 at 1839, other (Specify), sedation for cardiac catheterization, 10 mL, Pre-Procedure (Cath), procedural area to release, For sedation under direction provider privileged to perform sedation Do not give on the floor, Given 03/16/2019 5:33 PM DIETETIC TECH 1 mg morphine preservative free injection solution Given 03/16/2019 9:32 PM DIETETIC TECH 2 mg (conc: 2 mg/mL) 2 mg 2 mg, IV, Now, 1 dose, Sat03/16/19 at 2115, 1 mL morphine preservative free injection solution Given 03/17/2019 9:31 AM DIETETIC TECH 2 mg (conc: 2 mg/mL) 2 mg 2 mg, IV, Now, 1 dose, 03/17/19 at 0925, 1 mL nitroglycerin (100 mcg/mL) in NS Given 03/16/2019 5:48 PM DIETETIC TECH 3 mL 0-6 mL (0-600 mcg), Intra-arterial, Administer in Cardiac Food Service Director, 1 dose, Sat03/16/19 at 1745, 10 mL, Given by provider in CCL. Do not give on the floor., nitroglycerin (100 mcg/mL) in NS Given 03/16/2019 5:55 PM DIETETIC TECH 4 mL 0-6 mL (0-600 mcg), Intra-arterial, Administer in Cardiac Food Service Director, 1 dose, Sat03/16/19 at 1755, 10 mL, Given by provider in CCL. Do not give on the floor., nitroglycerin (100 mcg/mL) in NS Given 03/16/2019 6:08 PM DIETETIC TECH 3 mL 0-6 mL (0-600 mcg), Intra-arterial, Administer in Cardiac Food Service Director, 1 dose, Sat03/16/19 at 1810, 10 mL, Given by provider in CCL. Do not give on the floor., nitroglycerin (100 mcg/mL) in NS Given 03/16/2019 10:14 PM DIETETIC TECH 2 mL 0-6 mL (0-600 mcg), Intra-arterial, Administer in Cardiac Food Service Director, 1 dose, Sat03/16/19 at 2220, 10 mL, Given by provider in CCL. Do not give on the floor., nitroglycerin (400 mcg/mL) Rate Change 03/16/2019 11:58 PM 10 mcg/min 1.5 mL/hr in D5W IV solution (premix) DIETETIC TECH 5-100 mcg/min (0.75-15 mL/hr, rounded to 0.8-15 mL/hr), IV, at 0.8-15 mL/hr, Titrate, Starting Sat03/16/19 at 2215, Until Sat03/18/19 at 0947, 250 mL, For ADULT patients: Initiate infusion at 10 mcg/minute. For angina: Increase infusion by 5 mcg/minute every 5 minutes to 20 mcg/minute; if angina pain is not controlled at 20 mcg/minute, increase by 10 mcg/minute every 5 minutes until angina pain is controlled up to a max dose of 100 mcg/min. Notify physician if angina pain is not controlled with an infusion rate of 100 mcg/min. Do not increase the infusion rate if SBP less than 90 or MAP less than 60 mmHg. When discontinuing or weaning, decrease the infusion by 10 mcg/min every 15 minutes as tolerated to avoid hypertension and angina. Document titrations in One Chart (MAR or I&O Flowsheet medication group)., Already Infusing 03/16/2019 10:57 PM DIETETIC TECH 5 mcg/min 0.8 mL/hr New Bag 03/16/2019 9:43 PM DIETETIC TECH 10 mcg/min 1.5 mL/hr nitroglycerin (NITRO-BID) 2 % ointment 1 Given 03/19/2019 8:59 AM DIETETIC TECH 1 Inch Inch 1 Inch, Topical, Every six hours, First dose on Sat03/17/19 at 0920, Until Discontinued Given 03/19/2019 3:21 AM DIETETIC TECH 1 Inch Given 03/18/2019 9:05 PM DIETETIC TECH 1 Inch sodium chloride 0.9% IV solution New Bag 03/16/2019 11:24 AM DIETETIC TECH 75 mL/hr IV, at 75 mL/hr, Continuous, Starting Sat03/16/19 at 1230, Until Sat03/16/19 at 1839, 1,000 mL, Prep Orders (Cath) if inpatient - floor RN to release, If this is a TILT procedure, start IV fluid at TKO (10 mL/hr) before transfer to the open hearth laborer, sodium chloride 0.9% IV solution New Bag 03/17/2019 11:36 PM DIETETIC TECH 75 mL/hr IV, at 75 mL/hr, Continuous, Starting Sat03/16/19 at 2225, Until Sat03/18/19 at 0912, 1,000 mL New Bag 03/17/2019 4:12 AM DIETETIC TECH 75 mL/hr Rate Change 03/17/2019 2:41 AM DIETETIC TECH 75 mL/hr sodium chloride 0.9% IV solution Rate Change 03/17/2019 12:00 AM DIETETIC TECH 150 mL/hr IV, at 150 mL/hr, Continuous, Starting Sat03/16/19 at 2310, Until Tu03/17/19 at 0109, 1,000 mL, Post-Procedure (Cath) verapamil-hEParin in normal saline (radial Given 03/16/2019 5:36 PM DIETETIC TECH cocktail) Intra-arterial, Administer in Cardiac Food Service Director, 1 dose, Sat03/16/19 at 1735, 10 mL, Under the direction of the provider in CCL. Do not give on the floor., verapamil-hEParin in normal saline (radial Given 03/16/2019 10:03 PM DIETETIC TECH cocktail) Intra-arterial, Administer in Cardiac Food Service Director, 1 dose, Sat03/16/19 at 2215, 10 mL, Under the direction of the provider in CCL. Do not give on the floor., documented in this encounter
== END 2019-03-16 04:05 ==
LOC: LL.ED 01:10
DX: R07.89 Other chest pain (principal); R79.89 Other specified abnormal findings of blood chemistry; I10 Essential (primary) hypertension; E03.9 Hypothyroidism, unspecified; Z88.1 Allergy status to other antibiotic agents; Z79.899 Other long term (current) drug therapy
CPT/HCPCS: 36415; 71045; 80053; 81001; 83735; 83880; 84484; 85025; 85379; 85610; 93005; 96374; 99285-25; A9270-GY; J1644

== ENCOUNTER 2019-07-24 14:39 | Observation (INO) | payer MEDICARE ==
[2019-07-24] MEDS ORDERED: Sodium Chloride 0.9% 10 ML Syringe FLUSH PRN ×2 (14:59→18:16)
[2019-07-24] MEDS ORDERED: Famotidine 20 MG/2 ML SDV IVPUSH ONE (14:59)
[2019-07-24] MEDS ORDERED: Ticagrelor 90 MG Tab PO ONE (14:59)
[2019-07-24] MEDS ORDERED: Aspirin 81 MG Tab.Chew CHEW ONE (14:59)
--- NOTE | 2019-07-24 14:59 | EDM.PDOC ---
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 chronicity: acute on chronic Qualified Code(s): I50.23 - Acute on chronic systolic (congestive) heart failure Osteoarthritis Qualifiers: Osteoarthritis location: multiple joints Osteoarthritis type: primary Qualified Code(s): M89.49 - Other hypertrophic osteoarthropathy, 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: COPD type: emphysema Emphysema type: panlobular Qualified Code(s): J43.1 - Panlobular emphysema Referrals: Sonia Roe NP [Primary Care Provider] - Forms: ED Department Discharge Care Plan Goals: See plan Sepsis Event Note - Focused Exam Vital Signs: Vital Signs Temp Pulse Resp BP Pulse Ox 07/24/19 16:05 66 17 127/71 98 07/24/19 15:35 65 16 129/60 100 07/24/19 15:20 67 18 134/64 99 07/24/19 14:40 36.4 C 72 16 151/79 H 98 Date Exam was Performed: 07/24/19 Time Exam was Performed: 17:18 - Problem List & Annotations (1) Chest pain SNOMED Code(s): 79412163 Code(s): R07.9 - CHEST PAIN, UNSPECIFIED Status: Acute Priority: High Current Visit: Yes Onset Date: 07/24/19 Annotation/Comment:: Chest pain protocol initiated immediately upon patient's arrival to the emergency room. Initiate standard rule out DE orders. 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 Low threshold for cardiology consultation. Cardiolite stress test are not conducted in this facility at this time secondary to current COVID-19 pandemic. Consider increasing Imdur therapy at discharge depending on her clinical course. Qualifiers: Chest pain type: precordial pain Qualified Code(s): R07.2 - Precordial pain (2) Coronary artery disease SNOMED Code(s): 77175685 Code(s): I25.10 - ATHSCL HEART DISEASE OF [place] CORONARY ARTERY W/O ANG PCTRS Status: Acute Current Visit: Yes Onset Date: 03/16/19 Annotation/ Comment:: Note non-STEMI with subsequent lateral wall STEMI on 03/16/2019 as above. No chest pain or anginal type symptoms during this procedure. The patient is already followed up with her regular provider earlier in the week and does have a cardiology follow-up consultation scheduledon 05/07/19. Activity restrictions, etc. discussed with patient, who will be admitted to our cardiac rehabilitation program. Mild ischemic cardiomyopathy with consideration of repeating echocardiogram after completion of the cardiac rehabilitation program. Qualifiers: Coronary Disease-Associated Artery/Lesion type: [place] artery [place] vs. transplanted heart: [place] heart Associated angina: with stable angina Qualified Code(s): I25.118 - Atherosclerotic heart disease of [place] coronary artery with other forms of angina pectoris (3) Hypertension SNOMED Code(s): 63691758 Code(s): I10 - ESSENTIAL (PRIMARY) HYPERTENSION Status: Chronic Priority : Medium Current Visit: Yes Annotation/Comment:: Stable in the emergency room, although somewhat elevated initially on arrival. Continue to observe closely by regular provider, especially if Imdur is increased. Qualifiers: Hypertension type: essential hypertension Qualified Code(s): I10 - Essential (primary) hypertension (4) Hyperlipidemia SNOMED Code(s): 53843444 Code(s): E78.5 - HYPERLIPIDEMIA, UNSPECIFIED Status: Chronic Priority: Medium Current Visit: Yes Annotation/Comment:: Continue current medical therapy with lipid panel and glycosylated hemoglobin in the a.m. Note previous history of glucose intolerance. Qualifiers: Hyperlipidemia type: mixed hyperlipidemia Qualified Code(s): E78.2 - Mixed hyperlipidemia (5) PVCs (premature ventricular contractions) SNOMED Code(s): 47154670 Code(s): I49.3 - VENTRICULAR PREMATURE DEPOLARIZATION Status: Acute Priority: Medium Current Visit: Yes Onset Date: 03/26/19 Annotation/ Comment:: Observe for now with patient already on beta-lolly therapy. Nonsymptomatic. Additional history of PACs, couplets, PSVT, etc. (6) CHF (congestive heart failure) SNOMED Code(s): 67489515 Code(s): I50.9 - HEART FAILURE, UNSPECIFIED Status: Chronic Priority: Medium Current Visit: Yes Annotation/Comment:: Mild BNP elevation with secondary change of troponin I, which is still normal. No history of borderline ischemic cardiomyopathy with recent echocardiogram on 05/07/19. IV fluids with caution secondary to her mild lactic acid elevation and hypokalemia. Qualifiers: Heart failure type: systolic Heart failure chronicity: acute on chronic Qualified Code(s): I50.23 - Acute on chronic systolic (congestive) heart failure (7) COPD (chronic obstructive pulmonary disease) SNOMED Code(s): 24427797 Code(s): J44.9 - CHRONIC OBSTRUCTIVE PULMONARY DISEASE, UNSPECIFIED Status : Chronic Priority: Medium Current Visit: Yes Annotation/Comment:: No recent fever or bronchitic type symptoms. COPD and pulmonary fibrosis by chest x -ray with no previous therapy required. Consider PFTs depending on her clinical course. Qualifiers: COPD type: emphysema Emphysema type: panlobular Qualified Code(s): J43.1 - Panlobular emphysema (8) Elevated lactic acid level SNOMED Code(s): 3399044 Code(s): R79.89 - OTHER SPECIFIED ABNORMAL FINDINGS OF BLOOD CHEMISTRY Status: Acute Priority: High Current Visit: Yes Onset Date: 07/24/19 Annotation/Comment:: No clinical evidence of sepsis. IV fluids with caution as above. Lactic acid to be repeated at time of next set of cardiac enzymes. (9) Hypokalemia SNOMED Code(s): 50581797 Code(s): E87.6 - HYPOKALEMIA Status: Acute Priority: Medium Current Visit: Yes Onset Date: 07/24/19 Annotation/Comment:: IV lactated Ringer's with caution as above. (10) Osteoarthritis SNOMED Code(s): 648258241 Code(s): M19.90 - UNSPECIFIED OSTEOARTHRITIS, UNSPECIFIED SITE Status: Chronic Priority: Medium Current Visit: Yes Annotation/Comment:: Stable by history. Qualifiers: Osteoarthritis location: multiple joints Osteoarthritis type: primary Qualified Code(s): M89.49 - Other hypertrophic osteoarthropathy, multiple sites - Problem List Review Problem List Initiated/Reviewed/Updated: Yes - My Orders Last 24 Hours: My Active Orders 07/24/19 14:59 Cardiac Monitoring [RC] . DIRECTED EKG Documentation Completion [RC] ASDIRECTED Oxygen Therapy, ED [RC] PRN Peripheral IV Care [RC] . DIRECTED Pulse Oximetry [RC] CONTINUOUS Up With Assistance [RC] PFP Vital Signs [RC] PFP Chest 1V Frontal [CR] Stat Sodium Chloride 0.9% [Saline Flush] 10 ml FLUSH ASDIRECTED PRN Obtain Past Medical Record [OM.PC] Urgent Peripheral IV Insertion Adult [OM.PC] Stat Resuscitation Status Stat 07/24/19 Breakfast Nothing per Oral Now Diet [DIET] - Assessment/Plan Admission H&P: Please use this note as an admission H&P Last 24 Hours: My Active Orders 07/24/19 14:59 Cardiac Monitoring [RC] . DIRECTED EKG Documentation Completion [RC] ASDIRECTED Oxygen Therapy, ED [RC] PRN Peripheral IV Care [RC] . DIRECTED Pulse Oximetry [RC] CONTINUOUS Up With Assistance [RC] PFP Vital Signs [RC] PFP Chest 1V Frontal [CR] Stat Sodium Chloride 0.9% [Saline Flush] 10 ml FLUSH ASDIRECTED PRN Obtain Past Medical Record [OM.PC] Urgent Peripheral IV Insertion Adult [OM.PC] Stat Resuscitation Status Stat 07/24/19 Breakfast Nothing per Oral Now Diet [DIET] Assessment:: As above Plan: As above. Extensive precautions were given to the patient, who is in agreement with the treatment plan. The patient's condition is stable enough for observation status and general supervision. Ivan denise physician assumes care in the a.m.
[2019-07-24 15:50] LABS: PTT,PARTIAL THROMBOPLSTIN TIME 26.4 SEC (24.5-32.8)
[2019-07-24 15:52] LABS: CHLORIDE,CL 101 mmol/L (98-107); SODIUM,NA 141 mmol/L (136-145)
[2019-07-24] MEDS ORDERED: Enoxaparin 40 MG/0.4 ML Syringe SUBCUT SCH (18:00)
[2019-07-24] MEDS ORDERED: Temazepam 15 MG Cap PO PRN (18:16)
[2019-07-24] MEDS ORDERED: Acetaminophen 325 MG Tab PO PRN (18:16)
[2019-07-24] MEDS ORDERED: Enoxaparin 60 MG/0.6 ML Syringe SUBCUT SCH (18:30)
[2019-07-24] MEDS ORDERED: Lactated Ringers 1,000 ML IV SCH (19:00)
[2019-07-24] MEDS: Potassium Chloride 20 MEQ Tab.ER PO SCH (19:12)
[2019-07-24] MEDS ORDERED: amLODIPine 5 MG Tab PO SCH (20:00)
[2019-07-25] MEDS ORDERED: Aspirin 81 MG Tab.Chew PO SCH (08:00)
[2019-07-25] MEDS ORDERED: Clopidogrel 75 MG Tab PO SCH (08:00)
[2019-07-25] MEDS ORDERED: Levothyroxine 100 MCG Tab PO SCH (08:00)
[2019-07-25] MEDS ORDERED: Metoprolol Succinate 50 MG Tab.ER PO SCH (08:00)
[2019-07-25] MEDS ORDERED: Isosorbide Mononitrate 30 MG Tab.ER PO SCH (08:00)
[2019-07-25] MEDS ORDERED: Hydrochlorothiazide 25 MG Tab PO SCH (08:00)
[2019-07-25] MEDS: Potassium Chloride 20 MEQ Tab.ER PO SCH (08:19)
[2019-07-25] MEDS: Losartan 50 MG Tab PO SCH ×2 (08:23→08:30)
[2019-07-25] MEDS: atorvaSTATin 40 MG Tab PO SCH ×2 (08:24→08:30)
[2019-07-25 09:39] LABS: HEMOGLOBIN A1C 6.6 % (4.3-5.7)
[2019-07-25 09:53] LABS: CHLORIDE,CL 102 mmol/L (98-107); SODIUM,NA 140 mmol/L (136-145)
[2019-07-25 12:04] VITALS: BP 125/73; PULSE 62
--- NOTE | 2019-07-25 15:25 | PCM.DCSUM1 ---
Discharge Summary - Hospital Course Brief History: Admitted for further evaluation of chest discomfort complaint and serial troponin/cardiac monitoring Diagnosis: Stroke: No - Discharge Data Discharge Date: 07/25/19 Discharge Disposition: Home, Self-Care 01 Condition: Good - Referral to Home Health Primary Care Physician: Sonia Roe NP - Discharge Diagnosis/Problem(s) (1) Chest pain SNOMED Code(s): 78018318 ICD Code: R07.9 - CHEST PAIN, UNSPECIFIED Status: Acute Priority: High Current Visit: Yes Onset Date: 07/24/19 Problem Details: Unremarkable serial troponin measurements. No return of complaint. Telemetry overall unremarkable, has intermittent PVCs. Patient reports complaint as being more of a "sensation/pressure" but denies actual pain. Some discomfort to elbows bilaterally at times. Patient did wear an event monitor for these episodes and was called by her primary as to results. Primary provider said that Cardiology did not wish to change her meds at this time. Thus it appears that complaint may be related to the PVCs. She is to follow up Saturday with primary provider and cardiology clinic to get clarification as to event monitor results and further planning. 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 Qualifiers: Chest pain type: precordial pain Qualified Code(s): R07.2 - Precordial pain (2) PVCs (premature ventricular contractions) SNOMED Code(s): 06946491 ICD Code: I49.3 - VENTRICULAR PREMATURE DEPOLARIZATION Status: Chronic Priority: Medium Current Visit: Yes Onset Date: 03/26/19 Problem Details: Observe for now with patient already on beta-lolly therapy. Nonsymptomatic. Additional history of PACs, couplets, PSVT, etc. See above note regarding recent event monitor evaluation. Patient to follow up by phone Saturday with cardiology and PCP for further clarification and planning as it appears that the above intermittent arrhythmias are likely linked with her episodes of chest discomfort (3) Coronary artery disease SNOMED Code(s): 78625815 ICD Code: I25.10 - ATHSCL HEART DISEASE OF [place] CORONARY ARTERY W/O ANG PCTRS Status: Chronic Current Visit: Yes Onset Date: 03/16/19 Problem Details: Note non-STEMI with subsequent lateral wall STEMI on 03/16/2019 as above. To follow up closely with PCP and Cardiology clinic. Continue participation in cardiac rehab Qualifiers: Coronary Disease-Associated Artery/Lesion type: [place] artery [place] vs. transplanted heart: [place] heart Associated angina: with stable angina Qualified Code(s): I25.118 - Atherosclerotic heart disease of [place] coronary artery with other forms of angina pectoris (4) Elevated hemoglobin A1c SNOMED Code(s): 945869107 ICD Code: R73.09 - OTHER ABNORMAL GLUCOSE Status: Chronic Priority: Medium Current Visit: Yes Problem Details: Lower carb diet discussed with patient prior to discharge. To follow up with primary provider. (5) Elevated lactic acid level SNOMED Code(s): 9870358 ICD Code: R79.89 - OTHER SPECIFIED ABNORMAL FINDINGS OF BLOOD CHEMISTRY Status: Acute Priority: High Current Visit: Yes Onset Date: 07/24/19 Problem Details: No clinical evidence of sepsis. Patient feels well today/no acute changes or complaints. Lactic acid improved to 2.1. (6) Hypothyroidism SNOMED Code(s): 82266624 ICD Code: E03.9 - HYPOTHYROIDISM, UNSPECIFIED Status: Chronic Priority: Low Current Visit: Yes Problem Details: Follow up with primary provider. Qualifiers: Hypothyroidism type: unspecified Qualified Code(s): E03.9 - Hypothyroidism , unspecified (7) Hypokalemia SNOMED Code(s): 51397642 ICD Code: E87.6 - HYPOKALEMIA Status: Acute Priority: Medium Current Visit: Yes Onset Date: 07/24/19 Problem Details: Normalized today (8) CHF (congestive heart failure) SNOMED Code(s): 09395802 ICD Code: I50.9 - HEART FAILURE, UNSPECIFIED Status: Chronic Priority: Medium Current Visit: Yes Problem Details: Mild BNP elevation. No clinical evidence of fluid overload at this time. Qualifiers: Heart failure type: systolic Heart failure chronicity: acute on chronic Qualified Code(s): I50.23 - Acute on chronic systolic (congestive) heart failure (9) COPD (chronic obstructive pulmonary disease) SNOMED Code(s): 76206002 ICD Code: J44.9 - CHRONIC OBSTRUCTIVE PULMONARY DISEASE, UNSPECIFIED Status : Chronic Priority: Medium Current Visit: Yes Problem Details: No recent fever or bronchitic type symptoms. COPD and pulmonary fibrosis by chest x-ray with no previous therapy required. Qualifiers: COPD type: emphysema Emphysema type: panlobular Qualified Code(s): J43.1 - Panlobular emphysema (10) Hyperlipidemia SNOMED Code(s): 46694482 ICD Code: E78.5 - HYPERLIPIDEMIA, UNSPECIFIED Status: Chronic Priority: Medium Current Visit: Yes Problem Details: Lipid panel overall within good range. Qualifiers: Hyperlipidemia type: mixed hyperlipidemia Qualified Code(s): E78.2 - Mixed hyperlipidemia (11) Hypertension SNOMED Code(s): 82355795 ICD Code: I10 - ESSENTIAL (PRIMARY) HYPERTENSION Status: Chronic Priority : Medium Current Visit: Yes Problem Details: Stable. Follow up with primary provider Qualifiers: Hypertension type: essential hypertension Qualified Code(s): I10 - Essential (primary) hypertension (12) Osteoarthritis SNOMED Code(s): 047702022 ICD Code: M19.90 - UNSPECIFIED OSTEOARTHRITIS, UNSPECIFIED SITE Status: Chronic Priority: Medium Current Visit: Yes Problem Details: Stable by history. Qualifiers: Osteoarthritis location: multiple joints Osteoarthritis type: primary Qualified Code(s): M89.49 - Other hypertrophic osteoarthropathy, multiple sites - Patient Summary/Data Hospital Course: Unremarkable hospital course. Feels back to baseline today. Negative serial troponins. - Patient Instructions Diet: Anti-Inflammatory, Limited Carb (as discussed) Activity: As Tolerated Showering/Bathing: May Shower Other/Special Instructions: Call Cardiology clinic Saturday or primary provider to get more specific information on what the event monitor showed. Tell them you continue to have episodes of discomfort and would like to know if additional follow or medication adjustement is needed. Follow up in the ER over the weekend if you have worsning problems/concerns and get rechecked. - Discharge Plan *PRESCRIPTION DRUG MONITORING PROGRAM REVIEWED*: Not Applicable *COPY OF PRESCRIPTION DRUG MONITORING REPORT IN PATIENT REGGIE: Not Applicable Home Medications: Home Meds Levothyroxine [Synthroid] 100 mcg PO DAILY 02/16/16 [History] Losartan/Hydrochlorothiazide [Losartan-HCTZ 100-25 MG] 1 tab PO DAILY 02/16/16 [ History] amLODIPine [Norvasc] 10 mg PO BEDTIME 02/16/16 [History] Cholecalciferol (Vitamin D3) [Vitamin D3] 1,000 units PO DAILY 01/22/19 [History ] Lutein/Minerals/Vit A,C & E [Ocuvite] 1 tab PO DAILY 01/22/19 [History] Ubidecarenone [Co Q-10] 100 mg PO DAILY 01/22/19 [History] Acetaminophen [Tylenol] 650 mg PO Q4HR PRN 07/24/19 [History] Aspirin 81 mg PO DAILY 07/24/19 [History] Clopidogrel [Plavix] 75 mg PO DAILY 07/24/19 [History] Isosorbide Mononitrate [Isosorbide Mononitrate ER] 30 mg PO DAILY 07/24/19 [ History] Metoprolol Succinate [Toprol Xl] 50 mg PO DAILY 07/24/19 [History] Nitroglycerin [Nitrostat] 0.4 mg SL ASDIRECTED PRN MDD 3 07/24/19 [History] atorvaSTATin Calcium [Lipitor] 40 mg PO DAILY 07/24/19 [History] Patient Handouts: Nonspecific Chest Pain, Adult, Flxs-lt-Hato, Angina, Easy-to- Read Forms: ED Department Discharge Referrals: Sonia Roe [employer] [Primary Care Provider] - - Discharge Summary/Plan Comment DC Time >30 min.: No - General Info Date of Service: 07/25/19 Admission Dx/Problem (Free Text: Chest discomfort Subjective Update: Feels good, no current complaints Functional Status: Reports: Pain Controlled, Tolerating Diet, Ambulating, Urinating. Denies: New Symptoms - Review of Systems General: Reports: No Symptoms HEENT: Reports: Glasses Pulmonary: Reports: No Symptoms Cardiovascular: Reports: No Symptoms. Denies: Chest Pain, Palpitations, Dyspnea on Exertion, Lightheadedness Gastrointestinal: Reports: No Symptoms Genitourinary: Reports: No Symptoms Musculoskeletal: Reports: No Symptoms (no acute changes from baseline) Skin: Reports: No Symptoms Neurological: Reports: No Symptoms Psychiatric: Reports: No Symptoms - Patient Data Vitals - Most Recent: Last Vital Signs Temp 36.2 C 07/25/19 12:00 Pulse 62 07/25/19 12:00 Resp 16 07/25/19 12:00 BP 125/73 07/25/19 12:00 Pulse Ox 97 07/25/19 12:00 Weight - Most Recent: 74.026 kg I&O - Last 24 hours: Intake & Output 07/25/19 07/25/19 07/25/19 06:59 14:59 22:59 Intake Total 712 Output Total 1000 700 Balance -288 -700 Lab Results - Last 24 hrs: Laboratory Results - last 24 hr 07/24/19 07/24/19 07/24/19 Range/Units 14:59 14:59 14:59 WBC 5.4 (4.0-10.2) K/uL RBC 4.33 (3.77-5.09) M/uL Hgb 12.7 (11.7-15.5) g/dL Hct 39.2 (34.0-46.0) % MCV 90.5 (84.0-98.0) fL MCH 29.3 (28.2-33.3) pg MCHC 32.4 (31.7-36.0) g/dL RDW 13.8 (11.2-14.1) % Plt Count 292 (150-350) K/uL Neut % (Auto) 50.7 (45.0-80.0) % Lymph % (Auto) 32.8 (10.0-50.0) % Walsh % (Auto) 10.4 (2.0-14.0) % Eos % (Auto) 5.2 H (0.0-5.0) % Baso % (Auto) 0.9 (0.0-2.0) % Neut # (Auto) 2.72 (1.40-7.00) K/uL Lymph # (Auto) 1.76 (0.50-3.50) K/uL Walsh # (Auto) 0.56 (0.00-1.00) K/uL Eos # (Auto) 0.28 (0.00-0.50) K/uL Baso # (Auto) 0.05 (0.00-0.20) K/uL PT 10.2 (9.5-12.0) SEC INR 1.0 APTT 26.4 (24.5-32.8) SEC D-Dimer, Quantitative 329 (0-400) ng/mL Sodium (136-145) mmol/L Potassium (3.5-5.1) mmol/L Chloride (98-107) mmol/L Carbon Dioxide (21.0-32.0) mmol/L BUN (7-18) mg/dL Creatinine (0.51-1.17) mg/dL Est Cr Clr Drug Dosing mL/min Estimated GFR (MDRD) mL/min Glucose (74-106) mg/dL Hemoglobin A1c (4.3-5.7) % Lactic Acid (0.4-2.0) mmol/L Uric Acid (2.6-7.2) mg/dL Calcium (8.5-10.1) mg/dL Magnesium (1.8-2.4) mg/dL Total Bilirubin (0.2-1.0) mg/dL AST (15-37) U/L ALT (12-78) U/L Alkaline Phosphatase (46-116) IU/L Creatine Kinase (26-308) U/L Creatine Kinase Index (0.0-2.5) % CK-MB (CK-2) (0.00-3.60) ng/mL Troponin I (0.000-0.056) ng/mL NT-Pro-B Natriuret Pep (0-125) pg/mL Total Protein (6.4-8.2) g/dL Albumin (3.4-5.0) g/dL Triglycerides (30-150) mg/dL Cholesterol (100-200) mg/dL LDL Cholesterol, Calc (0-100) mg/dL HDL Cholesterol (40-60) mg/dL TSH, Ultra Sensitive (0.358-3.740) mIU/mL 07/24/19 07/24/19 07/24/19 Range/Units 14:59 14:59 20:39 WBC (4.0-10.2) K/uL RBC (3.77-5.09) M/uL Hgb (11.7-15.5) g/dL Hct (34.0-46.0) % MCV (84.0-98.0) fL MCH (28.2-33.3) pg MCHC (31.7-36.0) g/dL RDW (11.2-14.1) % Plt Count (150-350) K/uL Neut % (Auto) (45.0-80.0) % Lymph % (Auto) (10.0-50.0) % Walsh % (Auto) (2.0-14.0) % Eos % (Auto) (0.0-5.0) % Baso % (Auto) (0.0-2.0) % Neut # (Auto) (1.40-7.00) K/uL Lymph # (Auto) (0.50-3.50) K/uL Walsh # (Auto) (0.00-1.00) K/uL Eos # (Auto) (0.00-0.50) K/uL Baso # (Auto) (0.00-0.20) K/uL PT (9.5-12.0) SEC INR APTT (24.5-32.8) SEC D-Dimer, Quantitative (0-400) ng/mL Sodium 141 (136-145) mmol/L Potassium 3.4 L (3.5-5.1) mmol/L Chloride 101 (98-107) mmol/L Carbon Dioxide 27.8 (21.0-32.0) mmol/L BUN 17 (7-18) mg/dL Creatinine 0.66 (0.51-1.17) mg/dL Est Cr Clr Drug Dosing 51.30 mL/min Estimated GFR (MDRD) > 60 mL/min Glucose 210 H (74-106) mg/dL Hemoglobin A1c (4.3-5.7) % Lactic Acid 2.5 H (0.4-2.0) mmol/L Uric Acid 3.7 (2.6-7.2) mg/dL Calcium 10.1 (8.5-10.1) mg/dL Magnesium 1.9 (1.8-2.4) mg/dL Total Bilirubin 0.3 (0.2-1.0) mg/dL AST 22 (15-37) U/L ALT 35 (12-78) U/L Alkaline Phosphatase 87 (46-116) IU/L Creatine Kinase 81 83 (26-308) U/L Creatine Kinase Index 1.9 1.7 (0.0-2.5) % CK-MB (CK-2) 1.50 1.40 (0.00-3.60) ng/mL Troponin I 0.013 0.002 (0.000-0.056) ng/mL NT-Pro-B Natriuret Pep 323 H (0-125) pg/mL Total Protein 7.6 (6.4-8.2) g/dL Albumin 3.8 (3.4-5.0) g/dL Triglycerides (30-150) mg/dL Cholesterol (100-200) mg/dL LDL Cholesterol, Calc (0-100) mg/dL HDL Cholesterol (40-60) mg/dL TSH, Ultra Sensitive 0.306 L (0.358-3.740) mIU/mL 07/24/19 07/25/19 07/25/19 Range/Units 20:39 09:22 09:22 WBC 5.2 (4.0-10.2) K/uL RBC 4.55 (3.77-5.09) M/uL Hgb 13.5 (11.7-15.5) g/dL Hct 41.4 (34.0-46.0) % MCV 91.0 (84.0-98.0) fL MCH 29.7 (28.2-33.3) pg MCHC 32.6 (31.7-36.0) g/dL RDW 14.0 (11.2-14.1) % Plt Count 292 (150-350) K/uL Neut % (Auto) 53.0 (45.0-80.0) % Lymph % (Auto) 30.0 (10.0-50.0) % Walsh % (Auto) 10.8 (2.0-14.0) % Eos % (Auto) 5.0 (0.0-5.0) % Baso % (Auto) 1.2 (0.0-2.0) % Neut # (Auto) 2.76 (1.40-7.00) K/uL Lymph # (Auto) 1.56 (0.50-3.50) K/uL Walsh # (Auto) 0.56 (0.00-1.00) K/uL Eos # (Auto) 0.26 (0.00-0.50) K/uL Baso # (Auto) 0.06 (0.00-0.20) K/uL PT (9.5-12.0) SEC INR APTT (24.5-32.8) SEC D-Dimer, Quantitative (0-400) ng/mL Sodium 140 (136-145) mmol/L Potassium 4.1 (3.5-5.1) mmol/L Chloride 102 (98-107) mmol/L Carbon Dioxide 28.2 (21.0-32.0) mmol/L BUN 12 (7-18) mg/dL Creatinine 0.69 (0.51-1.17) mg/dL Est Cr Clr Drug Dosing 49.07 mL/min Estimated GFR (MDRD) > 60 mL/min Glucose 160 H (74-106) mg/dL Hemoglobin A1c (4.3-5.7) % Lactic Acid 1.2 (0.4-2.0) mmol/L Uric Acid (2.6-7.2) mg/dL Calcium 9.7 (8.5-10.1) mg/dL Magnesium (1.8-2.4) mg/dL Total Bilirubin 0.4 (0.2-1.0) mg/dL AST 22 (15-37) U/L ALT 40 (12-78) U/L Alkaline Phosphatase 84 (46-116) IU/L Creatine Kinase 61 (26-308) U/L Creatine Kinase Index 1.6 (0.0-2.5) % CK-MB (CK-2) 1.00 (0.00-3.60) ng/mL Troponin I 0.000 (0.000-0.056) ng/mL NT-Pro-B Natriuret Pep 297 H (0-125) pg/mL Total Protein 7.7 (6.4-8.2) g/dL Albumin 3.8 (3.4-5.0) g/dL Triglycerides 98 (30-150) mg/dL Cholesterol 132 (100-200) mg/dL LDL Cholesterol, Calc 38 (0-100) mg/dL HDL Cholesterol 74 H (40-60) mg/dL TSH, Ultra Sensitive (0.358-3.740) mIU/mL 07/25/19 07/25/19 Range/Units 09:22 09:22 WBC (4.0-10.2) K/uL RBC (3.77-5.09) M/uL Hgb (11.7-15.5) g/dL Hct (34.0-46.0) % MCV (84.0-98.0) fL MCH (28.2-33.3) pg MCHC (31.7-36.0) g/dL RDW (11.2-14.1) % Plt Count (150-350) K/uL Neut % (Auto) (45.0-80.0) % Lymph % (Auto) (10.0-50.0) % Walsh % (Auto) (2.0-14.0) % Eos % (Auto) (0.0-5.0) % Baso % (Auto) (0.0-2.0) % Neut # (Auto) (1.40-7.00) K/uL Lymph # (Auto) (0.50-3.50) K/uL Walsh # (Auto) (0.00-1.00) K/uL Eos # (Auto) (0.00-0.50) K/uL Baso # (Auto) (0.00-0.20) K/uL PT (9.5-12.0) SEC INR APTT (24.5-32.8) SEC D-Dimer, Quantitative (0-400) ng/mL Sodium (136-145) mmol/L Potassium (3.5-5.1) mmol/L Chloride (98-107) mmol/L Carbon Dioxide (21.0-32.0) mmol/L BUN (7-18) mg/dL Creatinine (0.51-1.17) mg/dL Est Cr Clr Drug Dosing mL/min Estimated GFR (MDRD) mL/min Glucose (74-106) mg/dL Hemoglobin A1c 6.6 H (4.3-5.7) % Lactic Acid 2.1 H (0.4-2.0) mmol/L Uric Acid (2.6-7.2) mg/dL Calcium (8.5-10.1) mg/dL Magnesium (1.8-2.4) mg/dL Total Bilirubin (0.2-1.0) mg/dL AST (15-37) U/L ALT (12-78) U/L Alkaline Phosphatase (46-116) IU/L Creatine Kinase (26-308) U/L Creatine Kinase Index (0.0-2.5) % CK-MB (CK-2) (0.00-3.60) ng/mL Troponin I (0.000-0.056) ng/mL NT-Pro-B Natriuret Pep (0-125) pg/mL Total Protein (6.4-8.2) g/dL Albumin (3.4-5.0) g/dL Triglycerides (30-150) mg/dL Cholesterol (100-200) mg/dL LDL Cholesterol, Calc (0-100) mg/dL HDL Cholesterol (40-60) mg/dL TSH, Ultra Sensitive (0.358-3.740) mIU/mL Med Orders - Current: Current Medications Acetaminophen (Tylenol) 650 mg PO Q4H PRN PRN Reason: Pain Amlodipine Besylate (Norvasc) 10 mg PO BEDTIME [facility] Last Admin: 07/24/19 19:16 Dose: 10 mg Aspirin (Aspirin) 81 mg PO DAILY [facility] Last Admin: 07/25/19 08:19 Dose: 81 mg Atorvastatin Calcium (Lipitor) 40 mg PO DAILY [facility] Last Admin: 07/25/19 08:30 Dose: Not Given Clopidogrel Bisulfate (Plavix) 75 mg PO DAILY [facility] Last Admin: 07/25/19 08:19 Dose: 75 mg Coenzyme Q10 (Coenzyme Q10) 100 mg PO DAILY [facility] Last Admin: 07/25/19 08:29 Dose: Not Given Enoxaparin Sodium (Lovenox) 40 mg SUBCUT Q24H [facility] Last Admin: 07/24/19 19:12 Dose: 40 mg Hydrochlorothiazide (Hydrochlorothiazide) 25 mg PO DAILY [facility] Last Admin: 07/25/19 08:19 Dose: 25 mg Lactated Ringer's (Ringers, Lactated) 1,000 mls @ 80 mls/hr IV ASDIRECTED [facility] Last Admin: 07/24/19 19:08 Dose: 80 mls/hr Isosorbide Mononitrate (Imdur) 30 mg PO DAILY [facility] Last Admin: 07/25/19 08:23 Dose: 30 mg Levothyroxine Sodium (Synthroid) 100 mcg PO DAILY [facility] Last Admin: 07/25/19 08:18 Dose: 100 mcg Losartan Potassium (Cozaar) 100 mg PO DAILY [facility] Last Admin: 07/25/19 08:30 Dose: Not Given Metoprolol Succinate (Toprol Xl) 50 mg PO DAILY [facility] Last Admin: 07/25/19 08:23 Dose: 50 mg Potassium Chloride (Klor-Con M20) 20 meq PO BID [facility] Last Admin: 07/25/19 08:19 Dose: 20 meq Sodium Chloride (Saline Flush) 10 ml FLUSH ASDIRECTED PRN PRN Reason: Keep Vein Open Last Admin: 07/24/19 15:14 Dose: 10 ml Sodium Chloride (Saline Flush) 10 ml FLUSH Q12HR PRN PRN Reason: Keep Vein Open Temazepam (Restoril) 15 mg PO BEDTIME PRN PRN Reason: Insomnia Discontinued Medications Aspirin (Aspirin) 324 mg CHEW ONETIME ONE Stop: 07/24/19 15:00 Last Admin: 07/24/19 15:12 Dose: 324 mg Enoxaparin Sodium (Lovenox) 30 mg SUBCUT Q24H [facility] Last Admin: 07/24/19 18:45 Dose: Not Given Famotidine (Pepcid) 40 mg IVPUSH ONETIME ONE Stop: 07/24/19 15:00 Last Admin: 07/24/19 15:13 Dose: 40 mg Ticagrelor (Brilinta) 180 mg PO ONETIME ONE Stop: 07/24/19 15:00 Last Admin: 07/24/19 15:13 Dose: 180 mg - Exam Quality Assessment: Reports: DVT Prophylaxis General: Reports: Alert, Oriented, Cooperative, No Acute Distress HEENT: Reports: Pupils Equal, Pupils Reactive, EOMI, Mucous Membr. Moist/Onward Neck: Reports: Supple Lungs: Reports: Clear to Auscultation, Normal Respiratory Effort Cardiovascular: Reports: Regular Rate, Regular Rhythm GI/Abdominal Exam: Normal Bowel Sounds, Soft, Non-Tender, No Distention (Female) Exam: Deferred Rectal (Female) Exam: Deferred Back Exam: Denies: CVA Tenderness (L), CVA Tenderness (R), Muscle Spasm Extremities: Normal Range of Motion, Non-Tender, Normal Capillary Refill Skin: Reports: Warm, Dry Neurological: Reports: No New Focal Deficit Psy/Mental Status: Reports: Alert, Normal Affect, Normal Mood EKG INTERPRETATION EKG Date: 07/25/19 Time: 08:29 Rhythm: NSR Rate (Beats/Min): 62 Elizabeth: Normal P-Wave: Present QRS: Normal ST-T: Normal QT: Normal Comparison: No Change
== END 2019-07-25 16:45 | disposition home or self-care (01) ==
LOC: LL.ED 14:39 → LL.MS 17:07 → UNDOADMOB 17:07 → LL.MS 17:36 → UNDODISOB 07-25 16:45
PROVIDERS: ADMIT Family Medicine; ATTEND Family Medicine
DX: R07.2 Precordial pain (principal); I49.3 Ventricular premature depolarization; E87.6 Hypokalemia; I25.118 Atherosclerotic heart disease of native coronary artery with other forms of angina pectoris; R79.89 Other specified abnormal findings of blood chemistry; E78.2 Mixed hyperlipidemia; M89.49 Other hypertrophic osteoarthropathy, multiple sites; I25.2 Old myocardial infarction; J43.1 Panlobular emphysema; I11.0 Hypertensive heart disease with heart failure; I50.23 Acute on chronic systolic (congestive) heart failure; R73.09 Other abnormal glucose; E03.9 Hypothyroidism, unspecified; Z88.1 Allergy status to other antibiotic agents; Z79.899 Other long term (current) drug therapy; Z79.890 Hormone replacement therapy; Z79.82 Long term (current) use of aspirin; Z95.5 Presence of coronary angioplasty implant and graft
CPT/HCPCS: 36415; 71045; 80053; 80061; 82550; 82553; 83036; 83605; 83735; 83880; 84443; 84484; 84550; 85025; 85379; 85610; 85730; 93005; 96361; 96372; 96374; 99285-25; A9270-GY; G0378; J1650; J3490; J7120

== ENCOUNTER → 2022-01-08 | Emergency (ER) | payer MEDICARE ==
[2022-02-01 15:20] LABS: ANION GAP 9.9 meq/L (7-15); CHLORIDE,CL 98 mmol/L (98-107); SODIUM,NA 136 mmol/L (136-145)
[2022-02-01 15:21] LABS: ESTIMATED GFR 75 mL/min (>=60); PTT,PARTIAL THROMBOPLSTIN TIME 25.7 SEC (23.6-29.8)
== END ==
LOC: LL.ED 12:15
DX: R07.9 Chest pain, unspecified (principal); R73.9 Hyperglycemia, unspecified; I25.10 Atherosclerotic heart disease of native coronary artery without angina pectoris; Z90.710 Acquired absence of both cervix and uterus
CPT/HCPCS: 36415; 71046; 80053; 82550; 84484; 85025; 85610; 85730; 93005; 99285